=== PATIENT | male | born 1975 | race Caucasian/White ===

== ENCOUNTER 2020-03-10 13:25 | Emergency (ER) | payer MEDICAID ==
[~2020-03-10] VITALS: Ht 175.3 cm; Wt 63.5 kg
[2020-03-10 16:33] VITALS: BP 116/74
== END 2020-03-10 16:50 | disposition home or self-care (01) ==
LOC: ER 13:25
DX: K08.89 Other specified disorders of teeth and supporting structures (principal); H61.21 Impacted cerumen, right ear

== ENCOUNTER 2020-12-20 14:55 | Inpatient (IN) | payer MEDICAID ==
[~2020-12-20] VITALS: Ht 175.3 cm; Wt 28.5 kg
[2020-12-20 16:29] LABS: Urine Bacteria NONE SEEN /hpf (None Seen); Urine Blood 2+ /uL (Negative); Urine Hyaline Cast FEW /lpf (0 - 2); Urine Mucus FEW (None Seen); Urine Specific Gravity 1.026 (1.001-1.035); Urine WBC 10 /hpf (0 - 3)
[2020-12-20 16:58] LABS: Basophils # (auto) 0 10 ^3/uL (0-0.2); Basophils % (auto) 0.6 % (0.0-2.0); Eosinophils # (auto) 0.2 10 ^3/uL (0-0.8); Eosinophils % (auto) 2.2 % (0.0-7.0); Hematocrit 39.6 % (41.0-53.0); Hemoglobin 13.6 g/dL (13.5-17.5); Lymphocytes # (auto) 1.5 10 ^3/uL (0.4-5.4); Lymphocytes % (auto) 19.7 % (10.0-50.0); Mean Corpuscular Hemoglobin 29.5 pg (28.0-32.0); Mean Corpuscular Hgb Conc. 34.4 g/dL (32.0-36.0); Mean Corpuscular Volume 85.7 fL (80.0-100.0); Monocytes # (auto) 0.9 10 ^3/uL (0-1.3); Monocytes % (auto) 11.9 % (0.0-12.0); Neutrophils # (auto) 4.8 10 ^3/uL (1.6-8.6); Neutrophils % (auto) 65.6 % (37.0-80.0); Red Blood Cells 4.63 10^6/uL (4.5-5.90); Red Cell Distribution Width 12.9 % (11.8-14.3); White Blood Cell 7.4 10^3/uL (4.4-10.8)
[2020-12-20 17:29] LABS: Albumin 3.5 g/dL (3.4-5.0); Calcium 9.1 mg/dL (8.5-10.1); Potassium 4.3 mmol/L (3.5-5.1)
[2020-12-20 17:32] LABS: Bilirubin, Total 0.4 mg/dL (0.2-1.0); Total Protein 7.7 g/dL (6.4-8.2)
[2020-12-20] MEDS ORDERED: cefTRIAXone 1GM/50ML D5W 50 ML IV ONE (17:45)
[2020-12-20] MEDS ORDERED: SODIUM CHLORIDE 0.9% 1,000 ML IV ONE (17:45)
[2020-12-20] MEDS ORDERED: KETOROLAC TROMETH 30 MG/ML 1ML VIAL IV ONE (22:15)
[2020-12-20] MEDS ORDERED: ONDANSETRON HCL 4 MG/2 ML VIAL IV PRN (23:30)
[2020-12-20] MEDS ORDERED: MORPHINE SULFATE INJECTION 2 MG/ML SYRG IV PRN (23:30)
[2020-12-20] MEDS ORDERED: ACETAMINOPHEN 325 MG TAB PO PRN (23:30)
[2020-12-20] MEDS ORDERED: NITROGLYCERIN 0.4 MG SL TAB SL PRN (23:30)
[2020-12-20 23:55] VITALS: BP 130/91
[2020-12-21] MEDS: HYDROcodone-ACET 5/325MG TAB PO PRN ×2 (00:56→14:56)
[2020-12-21 05:00] VITALS: BP 113/68
[2020-12-21] MEDS ORDERED: ATEN-60 PO ×2 (07:31)
[2020-12-21 09:00] VITALS: BP 131/77
[2020-12-21] MEDS ORDERED: cefTRIAXone 1GM/50ML D5W 50 ML IV SCH (09:00)
[2020-12-21] MEDS ORDERED: MANNITOL FTV 25% 12.5 GM/50 ML 50 ML IV ONE (09:45)
[2020-12-21] MEDS ORDERED: ASCORBIC ACID 500 MG TAB PO SCH (10:00)
[2020-12-21] MEDS ORDERED: MULTIPLE VITAMIN TAB PO SCH (10:00)
[2020-12-21] MEDS ORDERED: HEPARIN SODIUM (PORCINE) 5000 UNITS/ML 1ML VIAL SC SCH (10:00)
[2020-12-21] MEDS ORDERED: ZINC SULFATE 220mg CAP or TAB PO SCH (10:00)
[2020-12-21] MEDS ORDERED: TAMSULOSIN HYDROCHLORIDE 0.4 MG CAP PO SCH ×2 (10:30→18:00)
[2020-12-21] MEDS ORDERED: SODIUM CHLORIDE 0.9% 1,000 ML IV ONE (10:30)
[2020-12-21] MEDS: SODIUM CHLORIDE 0.9% 1,000 ML IV SCH ×2 (10:34→20:00)
[2020-12-21 10:47] LABS: Basophils # (auto) 0 10 ^3/uL (0-0.2); Basophils % (auto) 0.5 % (0.0-2.0); Eosinophils # (auto) 0.1 10 ^3/uL (0-0.8); Eosinophils % (auto) 1.4 % (0.0-7.0); Hematocrit 39.9 % (41.0-53.0); Hemoglobin 13.6 g/dL (13.5-17.5); Lymphocytes # (auto) 1.2 10 ^3/uL (0.4-5.4); Lymphocytes % (auto) 17.8 % (10.0-50.0); Mean Corpuscular Hemoglobin 29.6 pg (28.0-32.0); Mean Corpuscular Volume 87.2 fL (80.0-100.0); Monocytes # (auto) 0.5 10 ^3/uL (0-1.3); Monocytes % (auto) 7.3 % (0.0-12.0); Neutrophils # (auto) 4.8 10 ^3/uL (1.6-8.6); Red Blood Cells 4.58 10^6/uL (4.5-5.90); Red Cell Distribution Width 12.7 % (11.8-14.3); White Blood Cell 6.6 10^3/uL (4.4-10.8)
[2020-12-21 11:07] LABS: Albumin 3.3 g/dL (3.4-5.0); Calcium 9.2 mg/dL (8.5-10.1); Potassium 3.9 mmol/L (3.5-5.1)
[2020-12-21 11:10] LABS: Bilirubin, Total 0.3 mg/dL (0.2-1.0); Total Protein 7.3 g/dL (6.4-8.2)
[2020-12-21 13:00] VITALS: BP 121/82
[2020-12-21 17:00] VITALS: BP 115/63
[2020-12-21] MEDS ORDERED: DOCUSATE SOD 100 MG CAP PO SCH (17:15)
[2020-12-21] MEDS ORDERED: POLYETHYLENE GLYCOL 17 GM PWDR PO ONE (17:15)
[2020-12-21] MEDS ORDERED: LACTULOSE 20Gm/30ML SOLN PO PRN (17:15)
[2020-12-21] MEDS ORDERED: DOCU100C10 PO (17:43)
[2020-12-21] MEDS ORDERED: CEPH-322 PO (17:43)
[2020-12-21] MEDS ORDERED: TAMS0.4C36 PO (17:43)
[2020-12-21] MEDS ORDERED: HYDR-4902 PO (17:43)
[2020-12-21 17:47] VITALS: BP 115/63
== END 2020-12-21 20:00 | disposition home or self-care (01) | DRG 463 ==
LOC: ER 14:55 → OVERFLOW 23:19 → WEST WING 23:55
PROVIDERS: ADMIT Nurse Practitioner Family; ATTEND Nurse Practitioner Family
DX: N13.6 Pyonephrosis (principal); I10 Essential (primary) hypertension; K59.00 Constipation, unspecified; N20.2 Calculus of kidney with calculus of ureter; Z82.49 Family history of ischemic heart disease and other diseases of the circulatory system; Z20.822 Contact with and (suspected) exposure to COVID-19
CPT/HCPCS: 36415; 74018; 74176; 80053; 81001; 83735; 85025; 87086; 87426; 96365; 96366; 96375; G0378; J0696; J1885

== ENCOUNTER 2021-01-01 12:52 | Emergency (ER) | payer MEDICAID ==
[~2021-01-01] VITALS: Ht 175.3 cm; Wt 63.5 kg
[~2021-01-01 12:52] MED LIST: ATEN-60 PO; CEPH-322 PO; DOCU100C10 PO; HYDR-4902 PO; TAMS0.4C36 PO
[2021-01-01 14:29] VITALS: BP 139/92
[2021-01-01 15:56] LABS: Urine Bacteria FEW /hpf (None Seen); Urine Blood Negative /uL (Negative); Urine Mucus FEW (None Seen); Urine Specific Gravity 1.007 (1.001-1.035); Urine WBC 4 /hpf (0 - 3)
== END 2021-01-01 14:34 | disposition home or self-care (01) ==
LOC: ER 12:52
DX: N23 Unspecified renal colic (principal)
CPT/HCPCS: 81001

== ENCOUNTER 2021-01-26 16:39 | Emergency (ER) | payer MEDICAID ==
[~2021-01-26] VITALS: Ht 175.3 cm; Wt 63.5 kg
[2021-01-26 19:06] LABS: Urine Bacteria FEW /hpf (None Seen); Urine Blood Negative /uL (Negative); Urine Specific Gravity 1.005 (1.001-1.035); Urine WBC 2 /hpf (0 - 3)
[2021-01-26 19:24] VITALS: BP 127/74
== END 2021-01-26 19:27 | disposition home or self-care (01) ==
LOC: ER 16:39
DX: R30.0 Dysuria (principal); Z79.899 Other long term (current) drug therapy; Z87.442 Personal history of urinary calculi
CPT/HCPCS: 81001

== ENCOUNTER 2021-02-15 17:21 | Inpatient (IN) | payer MEDICAID ==
[~2021-02-15] VITALS: Ht 175.3 cm; Wt 63.5 kg
[2021-02-15] MEDS ORDERED: SODIUM CHLORIDE 0.9% 1,000 ML IV ONE (18:30)
[2021-02-15 18:34] LABS: Basophils # (auto) 0.1 10 ^3/uL (0-0.2); Basophils % (auto) 0.9 % (0.0-2.0); Eosinophils # (auto) 0.2 10 ^3/uL (0-0.8); Eosinophils % (auto) 2.5 % (0.0-7.0); Hematocrit 43.3 % (41.0-53.0); Hemoglobin 14.9 g/dL (13.5-17.5); Lymphocytes # (auto) 1.7 10 ^3/uL (0.4-5.4); Lymphocytes % (auto) 17.3 % (10.0-50.0); Mean Corpuscular Hemoglobin 29.3 pg (28.0-32.0); Mean Corpuscular Hgb Conc. 34.3 g/dL (32.0-36.0); Mean Corpuscular Volume 85.4 fL (80.0-100.0); Monocytes % (auto) 9.8 % (0.0-12.0); Neutrophils % (auto) 69.5 % (37.0-80.0); Nucleated Red Blood Cells % 0.1 %; Red Blood Cells 5.07 10^6/uL (4.5-5.90); Red Cell Distribution Width 12.8 % (11.8-14.3); White Blood Cell 10.1 10^3/uL (4.4-10.8)
[2021-02-15 18:41] LABS: INR 1.09 (0.9-1.15); Partial Thromboplastin Time 30.2 sec (23.6-33.0)
[2021-02-15 18:47] LABS: Albumin 3.8 g/dL (3.4-5.0); Anion Gap 5 (5-15); Blood Urea Nitrogen 24 mg/dL (7-18); Calcium 10.1 mg/dL (8.5-10.1); Carbon Dioxide 26 mmol/L (21-32); Chloride 110 mmol/L (98-107); Glucose 107 mg/dL (74-106); Magnesium 2.6 mg/dL (1.6-2.6); Potassium 4.6 mmol/L (3.5-5.1); Sodium 141 mmol/L (136-145)
[2021-02-15 18:53] LABS: Alanine Aminotransferase 27 U/L (16-61); Alkaline Phosphatase 97 U/L (45-117); Aspartate Aminotransferase 14 U/L (15-37); BUN/Creatinine Ratio 15.8; Bilirubin, Total 0.3 mg/dL (0.2-1.0); GFR African American 64 mL/min; GFR Non-African American 53 mL/min; Total Protein 7.6 g/dL (6.4-8.2)
[2021-02-15] MEDS ORDERED: dilTIAZem 25 MG/5 ML VIAL IV ONE (19:15)
[2021-02-15 20:55] LABS: Urine Bacteria NONE SEEN /hpf (None Seen); Urine Blood Negative /uL (Negative); Urine Specific Gravity 1.017 (1.001-1.035); Urine WBC 9 /hpf (0 - 3)
[2021-02-15] MEDS ORDERED: ASPirin 81 mg TAB PO ONE (21:15)
[2021-02-15] MEDS ORDERED: METOPROLOL TARTRATE 25 MG TAB PO ONE (21:15)
[2021-02-15] MEDS ORDERED: ACETAMINOPHEN 325 MG TAB PO PRN (21:15)
[2021-02-15] MEDS ORDERED: TEMAZEPAM 15 MG CAP PO PRN (21:15)
[2021-02-15] MEDS ORDERED: NITROGLYCERIN 0.4 MG SL TAB SL PRN (21:15)
[2021-02-15] MEDS ORDERED: ONDANSETRON HCL 4 MG/2 ML VIAL IV PRN (21:15)
[2021-02-15] MEDS ORDERED: MORPHINE SULFATE INJECTION 2 MG/ML SYRG IV PRN (21:15)
[2021-02-16 06:39] LABS: Basophils # (auto) 0.1 10 ^3/uL (0-0.2); Basophils % (auto) 0.8 % (0.0-2.0); Eosinophils # (auto) 0.2 10 ^3/uL (0-0.8); Eosinophils % (auto) 2.8 % (0.0-7.0); Hematocrit 40.7 % (41.0-53.0); Hemoglobin 14.1 g/dL (13.5-17.5); Lymphocytes # (auto) 1.9 10 ^3/uL (0.4-5.4); Lymphocytes % (auto) 22.8 % (10.0-50.0); Mean Corpuscular Hemoglobin 29.9 pg (28.0-32.0); Mean Corpuscular Hgb Conc. 34.7 g/dL (32.0-36.0); Mean Corpuscular Volume 86.2 fL (80.0-100.0); Monocytes # (auto) 0.8 10 ^3/uL (0-1.3); Monocytes % (auto) 9.4 % (0.0-12.0); Neutrophils # (auto) 5.3 10 ^3/uL (1.6-8.6); Neutrophils % (auto) 64.2 % (37.0-80.0); Nucleated Red Blood Cells % 0.1 %; Red Blood Cells 4.73 10^6/uL (4.5-5.90); Red Cell Distribution Width 12.8 % (11.8-14.3); White Blood Cell 8.2 10^3/uL (4.4-10.8)
[2021-02-16 06:57] LABS: Calcium 9.6 mg/dL (8.5-10.1); Chloride 112 mmol/L (98-107); Potassium 4.3 mmol/L (3.5-5.1); Sodium 140 mmol/L (136-145)
[2021-02-16 07:05] LABS: Anion Gap 3 (5-15); BUN/Creatinine Ratio 18.3; Blood Urea Nitrogen 22 mg/dL (7-18); Carbon Dioxide 25 mmol/L (21-32); GFR African American 85 mL/min; GFR Non-African American 70 mL/min; Glucose 91 mg/dL (74-106)
[2021-02-16] MEDS ORDERED: ATENOLOL 50 MG TAB PO SCH (10:00)
[2021-02-16] MEDS ORDERED: PANTOPRAZOLE 40 MG TAB PO SCH (10:00)
[2021-02-16] MEDS ORDERED: ASPirin 81 mg TAB PO SCH (10:00)
[2021-02-16 13:39] VITALS: BP 107/76
[2021-02-16] MEDS ORDERED: TAMSULOSIN HYDROCHLORIDE 0.4 MG CAP PO SCH (18:00)
== END 2021-02-16 14:00 | disposition home or self-care (01) | DRG 201 ==
LOC: EDBD 17:21 → ER 17:47 → TELE 21:15
PROVIDERS: ADMIT Nurse Practitioner; ATTEND Internal Medicine
DX: I48.91 Unspecified atrial fibrillation (principal); I10 Essential (primary) hypertension; Z82.49 Family history of ischemic heart disease and other diseases of the circulatory system; Z87.442 Personal history of urinary calculi; Z20.822 Contact with and (suspected) exposure to COVID-19
CPT/HCPCS: 36415; 71045; 80048; 80053; 81001; 83735; 83880; 84484; 85025; 85610; 85730; 87426; 93005; 93306; 96361; 96374; G0378

== ENCOUNTER 2021-04-04 09:47 | Emergency (ER) | payer MEDICAID ==
[~2021-04-04] VITALS: Ht 175.3 cm; Wt 63.5 kg
[2021-04-04 11:12] LABS: Urine Bacteria NONE SEEN /hpf (None Seen); Urine Blood 1+ /uL (Negative); Urine Mucus FEW (None Seen); Urine Specific Gravity 1.008 (1.001-1.035); Urine WBC 5 /hpf (0 - 3)
[2021-04-04] MEDS ORDERED: KETOROLAC TROMETH 30 MG/ML 1ML VIAL IV ONE ×2 (11:30→15:30)
[2021-04-04] MEDS ORDERED: SODIUM CHLORIDE 0.9% 1,000 ML IV ONE ×2 (11:30→13:30)
[2021-04-04 12:09] LABS: Basophils # (auto) 0 10 ^3/uL (0-0.2); Basophils % (auto) 0.5 % (0.0-2.0); Eosinophils # (auto) 0.1 10 ^3/uL (0-0.8); Eosinophils % (auto) 1.6 % (0.0-7.0); Hemoglobin 14.6 g/dL (13.5-17.5); Lymphocytes # (auto) 1.2 10 ^3/uL (0.4-5.4); Lymphocytes % (auto) 15.9 % (10.0-50.0); Mean Corpuscular Hemoglobin 29.2 pg (28.0-32.0); Mean Corpuscular Hgb Conc. 33.9 g/dL (32.0-36.0); Mean Corpuscular Volume 86.2 fL (80.0-100.0); Monocytes # (auto) 0.7 10 ^3/uL (0-1.3); Neutrophils # (auto) 5.6 10 ^3/uL (1.6-8.6); Red Blood Cells 4.99 10^6/uL (4.5-5.90); Red Cell Distribution Width 13.2 % (11.8-14.3); White Blood Cell 7.7 10^3/uL (4.4-10.8)
[2021-04-04 12:29] LABS: Albumin 3.8 g/dL (3.4-5.0); Calcium 9.8 mg/dL (8.5-10.1); Potassium 4.1 mmol/L (3.5-5.1)
[2021-04-04 12:33] LABS: BUN/Creatinine Ratio 9.4; Bilirubin, Total 0.5 mg/dL (0.2-1.0); Total Protein 8.2 g/dL (6.4-8.2)
[2021-04-04] MEDS ORDERED: TAMSULOSIN HYDROCHLORIDE 0.4 MG CAP PO ONE (13:30)
[2021-04-04 16:49] VITALS: BP 138/84
== END 2021-04-04 17:11 | disposition left against medical advice (07) ==
LOC: ER 09:47
DX: N13.30 Unspecified hydronephrosis (principal); N20.0 Calculus of kidney; I10 Essential (primary) hypertension; Z79.899 Other long term (current) drug therapy; Z79.2 Long term (current) use of antibiotics
CPT/HCPCS: 36415; 74176; 80053; 81001; 85025; 96361; 96374; 99284; J1885; J7030

== ENCOUNTER → 2021-07-09 | Day surgery (SDC) | payer MEDICAID ==
[~2021-07-09] VITALS: Ht 175.3 cm; Wt 63.5 kg
[~2021-07-09] MED LIST changes: -CEPH-322 PO; -DOCU100C10 PO; +DexAMETHasone SOD PHOS 10MG/1ML VIAL INJ ONE; +FLUC200T50 PO; -HYDR-4902 PO; +HYDROmorphone HCL 2 MG/ML VL IV PRN; +IOHEXOL 300 MG/ML 100ML BOTTLE IJ ONE; +LABETALOL HCL 5 MG/ML 4ML SYRINGE IV PRN; +MEPERIDINE HCL (25 MG/ML) 1ML VIAL ONE; +MIDAZOLAM HCL 2MG/2ML 2ml VIAL (1mg/ml) IV PRN; +MIDAZOLAM HCL 2MG/2ML 2ml VIAL (1mg/ml) ONE; +MORPHINE SULFATE INJECTION 2 MG/ML SYRG IV PRN; +ONDANSETRON HCL 4 MG/2 ML VIAL IV PRN; +PERCOT PO; +PROPOFOL 10 MG/ML 20 ML IV ONE; -TAMS0.4C36 PO; +ceFAZolin 1GM/50ML 100 ML IV ONE; +ePHEDrine SULFATE 50 MG/ML AMP IV PRN; +fentaNYL CITRATE 100 MCG/2 ML VL ONE
[2021-07-09 12:30] VITALS: BP 124/85
== END | disposition home or self-care (01) ==
LOC: SUR 07:59
PROVIDERS: ATTEND Urology
DX: N20.1 Calculus of ureter (principal); I10 Essential (primary) hypertension; Z20.822 Contact with and (suspected) exposure to COVID-19; Z82.49 Family history of ischemic heart disease and other diseases of the circulatory system
CPT/HCPCS: 52356; 74018; 76000; 88300; C2617; J0690; J1100; J1170; J2175; J2250; J2704; J3010; U0003

== ENCOUNTER 2021-08-15 07:50 | Inpatient (IN) | payer MEDICAID, OTHER ==
[~2021-08-15] VITALS: Ht 175.3 cm; Wt 63.5 kg
[~2021-08-15 07:50] MED LIST changes: -DexAMETHasone SOD PHOS 10MG/1ML VIAL INJ ONE; -HYDROmorphone HCL 2 MG/ML VL IV PRN; -IOHEXOL 300 MG/ML 100ML BOTTLE IJ ONE; -LABETALOL HCL 5 MG/ML 4ML SYRINGE IV PRN; -MEPERIDINE HCL (25 MG/ML) 1ML VIAL ONE; -MIDAZOLAM HCL 2MG/2ML 2ml VIAL (1mg/ml) IV PRN; -MIDAZOLAM HCL 2MG/2ML 2ml VIAL (1mg/ml) ONE; -MORPHINE SULFATE INJECTION 2 MG/ML SYRG IV PRN; -ONDANSETRON HCL 4 MG/2 ML VIAL IV PRN; -PROPOFOL 10 MG/ML 20 ML IV ONE; -ceFAZolin 1GM/50ML 100 ML IV ONE; -ePHEDrine SULFATE 50 MG/ML AMP IV PRN; -fentaNYL CITRATE 100 MCG/2 ML VL ONE
[2021-08-15] MEDS ORDERED: SODIUM CHLORIDE 0.9% 1,000 ML IV ONE (08:30)
[2021-08-15] MEDS ORDERED: SODIUM CHLORIDE 0.9% 1,000 ML IVB ONE (08:30)
[2021-08-15] MEDS ORDERED: dilTIAZem 25 MG/5 ML VIAL IV ONE (08:30)
[2021-08-15] MEDS ORDERED: ASPirin 81 mg TAB PO ONE (08:30)
[2021-08-15 08:52] LABS: Urine Bacteria NONE SEEN /hpf (None Seen); Urine Blood Negative /uL (Negative); Urine Specific Gravity 1.013 (1.001-1.035)
[2021-08-15 09:12] LABS: Albumin 3.6 g/dL (3.4-5.0); Calcium 9.5 mg/dL (8.5-10.1); Potassium 3.8 mmol/L (3.5-5.1)
[2021-08-15 09:13] LABS: Basophils # (auto) 0 10 ^3/uL (0-0.2); Basophils % (auto) 0.7 % (0.0-2.0); Eosinophils # (auto) 0.1 10 ^3/uL (0-0.8); Eosinophils % (auto) 1.9 % (0.0-7.0); Hematocrit 39.1 % (41.0-53.0); Hemoglobin 13.1 g/dL (13.5-17.5); Lymphocytes # (auto) 1.2 10 ^3/uL (0.4-5.4); Lymphocytes % (auto) 18.5 % (10.0-50.0); Mean Corpuscular Hgb Conc. 33.6 g/dL (32.0-36.0); Mean Corpuscular Volume 86.4 fL (80.0-100.0); Monocytes # (auto) 0.6 10 ^3/uL (0-1.3); Monocytes % (auto) 8.8 % (0.0-12.0); Neutrophils # (auto) 4.7 10 ^3/uL (1.6-8.6); Neutrophils % (auto) 70.1 % (37.0-80.0); Red Blood Cells 4.52 10^6/uL (4.5-5.90); Red Cell Distribution Width 15.2 % (11.8-14.3); White Blood Cell 6.7 10^3/uL (4.4-10.8)
[2021-08-15 09:17] LABS: Bilirubin, Total 0.4 mg/dL (0.2-1.0); Total Protein 7.4 g/dL (6.4-8.2)
[2021-08-15 09:23] LABS: Urine WBC None Seen /hpf (0 - 3)
[2021-08-15 09:34] LABS: BUN/Creatinine Ratio 15.3
[2021-08-15 09:45] LABS: INR 1.1 (0.9-1.15); Partial Thromboplastin Time 32.1 sec (23.6-33.0)
[2021-08-15] MEDS ORDERED: IOHEXOL 350 MG/ML 100ML IJ ONE (11:55)
[2021-08-15] MEDS ORDERED: METOPROLOL TARTRATE 1MG/1ML-5ML VIAL IV ONE (12:45)
[2021-08-15] MEDS ORDERED: AMIODARONE HCL 150 MG in D5W 5% 100 ML IV ONE (14:15)
[2021-08-15] MEDS ORDERED: AMIODARONE HCL (50 MG/ ML) 3 ML VIAL IV ONE ×2 (14:17→14:18)
[2021-08-15] MEDS ORDERED: AMIODARONE 450mg/250ml AE 250 ML IV ONE (14:25)
[2021-08-15] MEDS ORDERED: AMIODARONE 450mg/250ml AE 250 ML IV SCH (14:30)
[2021-08-15] MEDS ORDERED: ENOXAPARIN SOD 60 MG/0.6 ML SYRINGE SC ONE (15:00)
[2021-08-15] MEDS ORDERED: ACETAMINOPHEN 325 MG TAB PO PRN (17:15)
[2021-08-15] MEDS ORDERED: HYDROcodone-ACET 5/325MG TAB PO PRN (17:15)
[2021-08-15] MEDS ORDERED: NITROGLYCERIN 0.4 MG SL TAB SL PRN (17:15)
[2021-08-15] MEDS ORDERED: MORPHINE SULFATE INJECTION 2 MG/ML SYRG IV PRN (17:15)
[2021-08-15] MEDS ORDERED: DOCUSATE SOD 100 MG CAP PO PRN (17:15)
[2021-08-15] MEDS: AMIODARONE 450mg/250ml AE 250 ML IV SCH (20:49)
[2021-08-15 20:51] VITALS: BP 117/78
[2021-08-15] MEDS: ENOXAPARIN SOD 60 MG/0.6 ML SYRINGE SC SCH (21:36)
[2021-08-16] VITALS (14 sets, daily range): BP systolic 89–117; BP diastolic 61–77
[2021-08-16] MEDS: AMIODARONE 450mg/250ml AE 250 ML IV SCH (11:30)
[2021-08-16 11:45] LABS: Basophils # (auto) 0.1 10 ^3/uL (0-0.2); Basophils % (auto) 1.2 % (0.0-2.0); Eosinophils # (auto) 0 10 ^3/uL (0-0.8); Eosinophils % (auto) 0.4 % (0.0-7.0); Hematocrit 39.4 % (41.0-53.0); Hemoglobin 13.3 g/dL (13.5-17.5); Lymphocytes # (auto) 0.7 10 ^3/uL (0.4-5.4); Lymphocytes % (auto) 11.6 % (10.0-50.0); Mean Corpuscular Hemoglobin 29.1 pg (28.0-32.0); Mean Corpuscular Hgb Conc. 33.7 g/dL (32.0-36.0); Mean Corpuscular Volume 86.3 fL (80.0-100.0); Monocytes # (auto) 0.3 10 ^3/uL (0-1.3); Monocytes % (auto) 5.2 % (0.0-12.0); Neutrophils # (auto) 5.1 10 ^3/uL (1.6-8.6); Neutrophils % (auto) 81.6 % (37.0-80.0); Nucleated Red Blood Cells % 0.1 %; Red Blood Cells 4.56 10^6/uL (4.5-5.90); Red Cell Distribution Width 15.3 % (11.8-14.3); White Blood Cell 6.2 10^3/uL (4.4-10.8)
[2021-08-16 12:07] LABS: BUN/Creatinine Ratio 13.7; Calcium 10.1 mg/dL (8.5-10.1); Potassium 4.2 mmol/L (3.5-5.1)
[2021-08-16] MEDS: APIXABAN 5 MG TAB PO SCH ×2 (19:41→19:42)
[2021-08-16] MEDS: DRONEDARONE HCL 400 MG TAB PO SCH (19:42)
[2021-08-16] MEDS ORDERED: APIXABAN 5 MG TAB PO SCH (22:00)
[2021-08-16] MEDS ORDERED: DRONEDARONE HCL 400 MG TAB PO SCH (22:00)
== END 2021-08-16 20:56 | disposition left against medical advice (07) | DRG 201 ==
LOC: ER 07:50 → TELE 17:02 → EDUNIT# 17:02 → DOU IN ICU 20:14 → UNDODISIN 08-16 20:59
PROVIDERS: ADMIT Internal Medicine; ATTEND Internal Medicine
DX: I48.91 Unspecified atrial fibrillation (principal); N17.9 Acute kidney failure, unspecified; I10 Essential (primary) hypertension; Z20.822 Contact with and (suspected) exposure to COVID-19; Z53.29 Procedure and treatment not carried out because of patient's decision for other reasons; Z79.899 Other long term (current) drug therapy; Z82.49 Family history of ischemic heart disease and other diseases of the circulatory system; Z87.442 Personal history of urinary calculi
CPT/HCPCS: 36415; 71046; 71275; 80048; 80053; 80320; 81001; 83735; 84443; 84484; 85025; 85379; 85610; 85730; 87081; 93005; 93970; 96361; 96365; 96375; G0378; J7060

== ENCOUNTER 2021-12-25 10:43 | Emergency (ER) | payer MEDICAID ==
[~2021-12-25] VITALS: Ht 175.3 cm; Wt 65.4 kg
[2021-12-25 11:46] VITALS: BP 131/92
== END 2021-12-25 12:03 | disposition home or self-care (01) ==
LOC: ER 10:43
DX: M67.431 Ganglion, right wrist (principal); M71.331 Other bursal cyst, right wrist; I10 Essential (primary) hypertension; Z79.899 Other long term (current) drug therapy

== ENCOUNTER 2022-02-19 09:15 | Inpatient (IN) | payer MEDICAID ==
[~2022-02-19] VITALS: Ht 172.7 cm; Wt 68.4 kg
[2022-02-19 10:14] LABS: Basophils # (auto) 0.1 10 ^3/uL (0-0.2); Basophils % (auto) 0.5 % (0.0-2.0); Eosinophils # (auto) 0.2 10 ^3/uL (0-0.8); Eosinophils % (auto) 1.4 % (0.0-7.0); Hematocrit 40.9 % (41.0-53.0); Hemoglobin 13.5 g/dL (13.5-17.5); Lymphocytes # (auto) 1.1 10 ^3/uL (0.4-5.4); Lymphocytes % (auto) 9.9 % (10.0-50.0); Mean Corpuscular Hemoglobin 28.1 pg (28.0-32.0); Mean Corpuscular Volume 85.4 fL (80.0-100.0); Monocytes # (auto) 0.9 10 ^3/uL (0-1.3); Monocytes % (auto) 7.8 % (0.0-12.0); Neutrophils # (auto) 9.2 10 ^3/uL (1.6-8.6); Neutrophils % (auto) 80.4 % (37.0-80.0); Red Blood Cells 4.79 10^6/uL (4.5-5.90); White Blood Cell 11.5 10^3/uL (4.4-10.8)
[2022-02-19] MEDS ORDERED: dilTIAZem 25 MG/5 ML VIAL IV ONE (10:15)
[2022-02-19 10:21] LABS: Albumin 3.6 g/dL (3.4-5.0); Calcium 9.9 mg/dL (8.5-10.1); Magnesium 2.4 mg/dL (1.6-2.6); Potassium 4.4 mmol/L (3.5-5.1)
[2022-02-19 10:25] LABS: Bilirubin, Total 0.4 mg/dL (0.2-1.0)
[2022-02-19 10:49] LABS: Urine Bacteria NONE SEEN /hpf (None Seen); Urine Blood Negative /uL (Negative); Urine Mucus FEW (None Seen); Urine Specific Gravity 1.014 (1.001-1.035); Urine WBC 2 /hpf (0 - 3)
[2022-02-19] MEDS ORDERED: HYDROcodone-ACET 5/325MG TAB PO ONE (12:00)
[2022-02-19] MEDS ORDERED: AMIODARONE 450mg/250ml AE 250 ML IV SCH ×2 (13:15→19:15)
[2022-02-19] MEDS ORDERED: AMIODARONE HCL 150 MG in D5W 5% 100 ML IV ONE (13:15)
[2022-02-19] MEDS ORDERED: ACETAMINOPHEN 325 MG TAB PO PRN (13:15)
[2022-02-19] MEDS ORDERED: HYDROcodone-ACET 5/325MG TAB PO PRN (13:15)
[2022-02-19] MEDS ORDERED: ONDANSETRON HCL 4 MG/2 ML VIAL IV PRN (13:15)
[2022-02-19] MEDS ORDERED: NITROGLYCERIN 0.4 MG SL TAB SL PRN (13:15)
[2022-02-19] MEDS ORDERED: MORPHINE SULFATE INJ 2 MG/ml SYRG IV PRN (13:15)
[2022-02-19] MEDS ORDERED: DOCUSATE SOD 100 MG CAP PO PRN (13:15)
[2022-02-19] MEDS ORDERED: ATEN25TA PO (13:19)
[2022-02-19] MEDS: SODIUM CHLORIDE 0.9% 1,000 ML IV SCH ×2 (13:56→23:32)
[2022-02-19] MEDS ORDERED: PANTOPRAZOLE 40 MG/10 ML VIAL INJ IV ONE (14:15)
[2022-02-19 22:00] VITALS: BP 106/72
[2022-02-19 22:55] LABS: Amphetamine Screen, Urine NEGATIVE (NEGATIVE); Barbiturate Scree,Urine NEGATIVE (NEGATIVE); Benzodiazephine Screen, Urine NEGATIVE (NEGATIVE); Cannabinoid Screen, Urine NEGATIVE (NEGATIVE); Cocaine Screen, Urine NEGATIVE (NEGATIVE); Opiate Scree,Urine POSITIVE (NEGATIVE); Phencyclidine Screen, Urine NEGATIVE (NEGATIVE)
[2022-02-20 05:00] VITALS: BP 104/68
[2022-02-20] MEDS ORDERED: DRON400T PO (08:48)
[2022-02-20 09:00] VITALS: BP 110/72
[2022-02-20] MEDS ORDERED: AMIODARONE HCL 200 MG TAB PO SCH (09:00)
[2022-02-20] MEDS: SODIUM CHLORIDE 0.9% 1,000 ML IV SCH (09:00)
[2022-02-20] MEDS ORDERED: PANTOPRAZOLE 40 MG/10 ML VIAL INJ IV SCH (10:00)
[2022-02-20] MEDS: ENOXAPARIN SOD 40 MG/0.4 ML SYRINGE SC SCH ×2 (10:00→10:24)
[2022-02-20] MEDS ORDERED: ATENOLOL 25 MG TAB PO SCH (10:00)
[2022-02-20 11:37] VITALS: BP 110/72
== END 2022-02-20 12:15 | disposition home or self-care (01) | DRG 201 ==
LOC: ER 09:15 → TELE 13:17 → TELE-CENTR 18:36
PROVIDERS: ADMIT Nurse Practitioner Family; ATTEND Nurse Practitioner Family
DX: I48.0 Paroxysmal atrial fibrillation (principal); D72.829 Elevated white blood cell count, unspecified; I10 Essential (primary) hypertension; Z79.899 Other long term (current) drug therapy; Z82.49 Family history of ischemic heart disease and other diseases of the circulatory system; Z87.442 Personal history of urinary calculi; Z20.822 Contact with and (suspected) exposure to COVID-19
CPT/HCPCS: 36415; 71045; 80053; 80307; 81001; 83735; 83880; 84443; 84484; 85025; 93005; 93306; 96365; 96366; 96375; C9113; G0378; J7060

== ENCOUNTER 2022-08-26 14:48 | Emergency (ER) | payer MEDICAID ==
[~2022-08-26] VITALS: Ht 162.6 cm; Wt 64.4 kg
[~2022-08-26 14:48] MED LIST changes: +ATEN25TA PO; +DRON400T PO; -FLUC200T50 PO
[2022-08-26 14:57] VITALS: BP 123/70
[2022-08-26 15:36] LABS: Urine Bacteria NONE SEEN /hpf (None Seen); Urine Blood Negative /uL (Negative); Urine Specific Gravity 1.005 (1.001-1.035); Urine WBC 1 /hpf (0 - 3)
[2022-08-26 16:10] LABS: Basophils # (auto) 0.1 10 ^3/uL (0-0.2); Basophils % (auto) 0.7 % (0.0-2.0); Eosinophils # (auto) 0.2 10 ^3/uL (0-0.8); Eosinophils % (auto) 1.8 % (0.0-7.0); Hemoglobin 13.5 g/dL (13.5-17.5); Lymphocytes # (auto) 1.3 10 ^3/uL (0.4-5.4); Lymphocytes % (auto) 14.6 % (10.0-50.0); Mean Corpuscular Hemoglobin 28.2 pg (28.0-32.0); Mean Corpuscular Hgb Conc. 33.1 g/dL (32.0-36.0); Mean Corpuscular Volume 85.2 fL (80.0-100.0); Monocytes # (auto) 0.9 10 ^3/uL (0-1.3); Monocytes % (auto) 9.5 % (0.0-12.0); Neutrophils # (auto) 6.6 10 ^3/uL (1.6-8.6); Neutrophils % (auto) 73.4 % (37.0-80.0); Nucleated Red Blood Cells % 0.3 %; Red Blood Cells 4.81 10^6/uL (4.5-5.90); Red Cell Distribution Width 13.6 % (11.8-14.3)
[2022-08-26 16:27] LABS: Albumin 3.6 g/dL (3.4-5.0); Calcium 9.9 mg/dL (8.5-10.1); Potassium 4.1 mmol/L (3.5-5.1)
[2022-08-26 16:36] LABS: BUN/Creatinine Ratio 10.7 (10.0-20.0); Bilirubin, Total 0.4 mg/dL (0.2-1.0); Total Protein 7.8 g/dL (6.4-8.2)
[2022-08-26] MEDS ORDERED: IBUP800T26 PO (17:20)
== END 2022-08-26 18:14 | disposition home or self-care (01) ==
LOC: ER 14:48
DX: N20.0 Calculus of kidney (principal); I10 Essential (primary) hypertension; Z79.899 Other long term (current) drug therapy
CPT/HCPCS: 36415; 74176; 80053; 81001; 85025

== ENCOUNTER 2022-09-28 23:58 | Inpatient (IN) | payer MEDICAID, OTHER ==
[~2022-09-28] VITALS: Ht 175.3 cm; Wt 66.1 kg
[~2022-09-28 23:58] MED LIST changes: +IBUP800T26 PO
[2022-09-29] MEDS ORDERED: dilTIAZem 25 MG/5 ML VIAL IV ONE (00:30)
[2022-09-29] MEDS ORDERED: SODIUM CHLORIDE 0.9% 500 ML IV ONE ×3 (00:30→19:15)
[2022-09-29 00:32] LABS: Basophils # (auto) 0 10 ^3/uL (0-0.2); Basophils % (auto) 0.6 % (0.0-2.0); Eosinophils # (auto) 0.1 10 ^3/uL (0-0.8); Eosinophils % (auto) 1.4 % (0.0-7.0); Hematocrit 39.2 % (41.0-53.0); Hemoglobin 13.4 g/dL (13.5-17.5); Lymphocytes # (auto) 1.8 10 ^3/uL (0.4-5.4); Lymphocytes % (auto) 23.5 % (10.0-50.0); Mean Corpuscular Hemoglobin 29.1 pg (28.0-32.0); Mean Corpuscular Hgb Conc. 34.1 g/dL (32.0-36.0); Mean Corpuscular Volume 85.3 fL (80.0-100.0); Monocytes % (auto) 13.4 % (0.0-12.0); Neutrophils # (auto) 4.8 10 ^3/uL (1.6-8.6); Neutrophils % (auto) 61.1 % (37.0-80.0); Nucleated Red Blood Cells % 0.1 %; Red Cell Distribution Width 13.6 % (11.8-14.3); White Blood Cell 7.8 10^3/uL (4.4-10.8)
[2022-09-29 00:39] LABS: INR 1.07 (0.9-1.15); Partial Thromboplastin Time 32.1 sec (24.6-33.4)
[2022-09-29 00:43] LABS: Albumin 3.3 g/dL (3.4-5.0); Magnesium 2.3 mg/dL (1.6-2.6); Potassium 4.1 mmol/L (3.5-5.1)
[2022-09-29 00:45] LABS: BUN/Creatinine Ratio 14.8 (10.0-20.0)
[2022-09-29 00:48] LABS: Bilirubin, Total 0.3 mg/dL (0.2-1.0); Total Protein 7.4 g/dL (6.4-8.2)
[2022-09-29] MEDS ORDERED: dilTIAZem 125mg/125ml BAG KIT 125 ML IV ONE (01:15)
[2022-09-29 01:53] LABS: Urine Bacteria NONE SEEN /hpf (None Seen); Urine Blood Negative /uL (Negative); Urine Specific Gravity 1.003 (1.001-1.035); Urine Sperm PRESENT /hpf (None Seen); Urine WBC <1 /hpf (0 - 3)
[2022-09-29] MEDS ORDERED: HYDROcodone-ACET 5/325MG TAB PO ONE (02:00)
[2022-09-29] MEDS ORDERED: TEMAZEPAM 15 MG CAP PO PRN (04:45)
[2022-09-29] MEDS ORDERED: ACETAMINOPHEN 325 MG TAB PO PRN (04:45)
[2022-09-29] MEDS ORDERED: NITROGLYCERIN 0.4 MG SL TAB SL PRN (04:45)
[2022-09-29] MEDS ORDERED: ONDANSETRON HCL 4 MG/2 ML VIAL IV PRN (04:45)
[2022-09-29] MEDS ORDERED: MORPHINE SULFATE INJ 2 MG/ml SYRG IV PRN (04:45)
[2022-09-29] MEDS ORDERED: METOPROLOL TARTRATE 1MG/1ML-5ML VIAL IV PRN (08:15)
[2022-09-29] MEDS: METOPROLOL TARTRATE 25 MG TAB PO SCH ×4 (08:46→22:54)
[2022-09-29] MEDS ORDERED: ATENOLOL 50 MG TAB PO SCH (10:00)
[2022-09-29] MEDS ORDERED: ENOXAPARIN SOD 40 MG/0.4 ML SYRINGE SC SCH (10:00)
[2022-09-29] MEDS: MULTAQ 400 MG PO SCH (10:00)
[2022-09-29] MEDS ORDERED: ENOXAPARIN SOD 80 MG/0.8ML SYRINGE SC ONE (11:45)
[2022-09-29] MEDS: PANTOPRAZOLE 40 MG TAB PO SCH (11:56)
[2022-09-29] MEDS ORDERED: AMIODARONE 450mg/250ml AE 250 ML IV SCH ×2 (12:00→18:00)
[2022-09-29] MEDS ORDERED: METOPROLOL TARTRATE 25 MG TAB PO ONE (13:15)
[2022-09-29] MEDS: AMIODARONE 450mg/250ml AE 250 ML IV SCH (17:20)
[2022-09-29 19:52] LABS: Alcohol, Urine < 3.0 mg/dL (0-10); Amphetamine Screen, Urine NEGATIVE (NEGATIVE); Barbiturate Scree,Urine NEGATIVE (NEGATIVE); Benzodiazephine Screen, Urine NEGATIVE (NEGATIVE); Cannabinoid Screen, Urine NEGATIVE (NEGATIVE); Cocaine Screen, Urine NEGATIVE (NEGATIVE); Opiate Scree,Urine NEGATIVE (NEGATIVE); Phencyclidine Screen, Urine NEGATIVE (NEGATIVE)
[2022-09-29] MEDS ORDERED: ENOXAPARIN SOD 80 MG/0.8ML SYRINGE SC SCH (22:00)
[2022-09-29 22:39] VITALS: BP 119/87
[2022-09-30] MEDS: AMIODARONE 450mg/250ml AE 250 ML IV SCH (00:30)
[2022-09-30 05:00] VITALS: BP 103/64
[2022-09-30] MEDS ORDERED: ASPirin-EC 81 mg tab PO ONE (07:45)
[2022-09-30 08:00] VITALS: BP 113/62
[2022-09-30] MEDS ORDERED: DRONEDARONE HCL 400 MG TAB PO SCH (08:00)
[2022-09-30] MEDS: MULTAQ 400 MG PO SCH (08:15)
[2022-09-30 08:43] VITALS: BP 113/62
[2022-09-30] MEDS: PANTOPRAZOLE 40 MG TAB PO SCH (08:50)
[2022-09-30] MEDS: METOPROLOL TARTRATE 25 MG TAB PO SCH (08:51)
[2022-09-30] MEDS ORDERED: ASPI-498 PO (10:19)
[2022-09-30] MEDS ORDERED: MET25T PO (10:19)
[2022-09-30] MEDS ORDERED: DRON400T PO (10:19)
[2022-09-30 10:47] VITALS: BP 113/62
== END 2022-09-30 11:15 | disposition home or self-care (01) | DRG 201 ==
LOC: ER 23:58 → TELE 09-29 04:45 → TELE-WESTW 09-29 21:35
PROVIDERS: ADMIT Nurse Practitioner; ATTEND Internal Medicine
DX: I48.0 Paroxysmal atrial fibrillation (principal); I11.0 Hypertensive heart disease with heart failure; I50.22 Chronic systolic (congestive) heart failure; Z79.01 Long term (current) use of anticoagulants; Z79.82 Long term (current) use of aspirin; Z79.899 Other long term (current) drug therapy; Z82.49 Family history of ischemic heart disease and other diseases of the circulatory system; Z87.442 Personal history of urinary calculi; Z91.148 Patient's other noncompliance with medication regimen for other reason
CPT/HCPCS: 36415; 71045; 80053; 80307; 81001; 83735; 83880; 84443; 84484; 85025; 85610; 85730; 93005; 93306; 96361; 96365; 96366; 96376; 99291; G0378

== ENCOUNTER 2023-04-29 08:39 | Emergency (ER) | payer MEDICAID ==
[~2023-04-29] VITALS: Ht 167.6 cm; Wt 65.9 kg
[~2023-04-29 08:39] MED LIST changes: +ASPI-498 PO; -ATEN-60 PO; -ATEN25TA PO; -IBUP800T26 PO; +MET25T PO; -PERCOT PO
[2023-04-29 09:06] VITALS: BP 122/84; PULSE 71; RESP 18; TEMP 97.1; O2SAT 100
[2023-04-29] MEDS ORDERED: IBUPROFEN 600 MG TAB PO ONE (10:00)
[2023-04-29] MEDS ORDERED: ACETAMINOPHEN 500 MG TAB PO ONE (10:00)
[2023-04-29] MEDS ORDERED: ACE650RS PR (10:09)
[2023-04-29] MEDS ORDERED: CEPH500C PO (10:09)
== END 2023-04-29 10:10 | disposition home or self-care (01) ==
LOC: ER 08:39
DX: S00.33XA Contusion of nose, initial encounter (principal); I10 Essential (primary) hypertension; Z87.442 Personal history of urinary calculi; W18.09XA Striking against other object with subsequent fall, initial encounter; Y93.K1 Activity, walking an animal; Y92.89 Other specified places as the place of occurrence of the external cause; Y99.8 Other external cause status
CPT/HCPCS: 70160

== ENCOUNTER 2024-10-01 15:29 | Inpatient (IN) | payer MEDICAID ==
[~2024-10-01] VITALS: Ht 175.3 cm; Wt 68.0 kg
[~2024-10-01 15:29] MED LIST changes: +ACE650RS PR; +CEPH500C PO
--- NOTE | 2024-10-01 15:40 | ED.PDOC ---
HPI Comments 49 year old male presents to the ED with a chief compliant of palpitations onset today (10/01/24) about 3 hours ago. PMHx A-fib, HTN. Patient missed medication for the past day. Patient was running after dog when he began experiencing palpitations. Patient has experienced 3 similar episodes in the past, has been seen in this ED. Denies shortness of breath, dizziness, headache, blurry vision, nausea, vomiting, diarrhea. No other symptoms or modifying factors present at this time. Time Seen by MD: 15:31 Primary Care Provider: UNKNOWN Reviewed Notes: Medications, Allergies Allergies: Coded Allergies: No Known Drug Allergy (Unverified Allergy, Unknown, 08/15/21) Home Meds Active Scripts Acetaminophen (Tylenol) 650 Mg Rc, 650 MG [place] TID, #30 TAB Prov:ALEXANDRA CLAUDIO 04/29/23 Cephalexin Monohydrate (Cephalexin) 500 Mg Cap, 1 CAP PO TID, #21 CAP Prov:ALEXANDRA CLAUDIO 04/29/23 Aspirin (ASPIRIN 81) 81 Mg Tab, 81 MG PO DAILY, #30 TAB Prov:CHIDI FLORIAN MD 09/30/22 Metoprolol Tartrate (Lopressor) 25 Mg Tb, 50 MG PO BID, #120 TAB Prov:CHIDI FLORIAN MD 09/30/22 Dronedarone Hydrochloride (Multaq) 400 Mg Tab, 400 MG PO BID, #60 TAB Prov:CHIDI FLORIAN MD 09/30/22 Information Source: Patient Mode of Arrival: Ambulatory Severity: Moderate Timing: Hours Duration: Since onset, Days Cardiac Risk Factors: HTN History of: Similar pain in past Modifying Factors: Nothing Associated Signs and Symptoms: Palpitations Past Medical History PAST MEDICAL HISTORY: AFIB, HTN, Kidney Stones Surgical History: Denies all surgeries Family History Family History: Reviewed,noncontributory to illness Social History Smoker: Non-Smoker Alcohol: Denies ETOH Use Drugs: Denies Drug Use Lives In: Home Constitutional: denies: chills, diaphoresis, fatigue, fever, malaise, sweats, weakness, others EENTM: denies: blurred vision, double vision, ear bleeding, ear discharge, ear drainage, ear pain, ear ringing, eye pain, eye redness, hearing loss, mouth pain, mouth swelling, nasal discharge, nose bleeding, nose congestion, nose pain, photophobia, tearing, throat pain, throat swelling, voice changes, others Respiratory: denies: cough, hemoptysis, orthopnea, SOB at rest, shortness of breath, SOB with excertion, stridor, wheezing, others Cardiovascular: reports: palpitations; denies: chest pain, dizzy spells, diaphoresis, Dyspnea on exertion, edema, irregular heart beat, left arm pain, lightheadedness, PND, syncope, others Gastrointestinal: denies: abdomen distended, abdominal pain, blood streaked bowels, constipated, diarrhea, dysphagia, difficulty swallowing, hematemesis, melena, nausea, poor appetite, poor fluid intake, rectal bleeding, rectal pain, vomiting, others Genitourinary: denies: burning, dysuria, flank pain, frequency, hematuria, incontinence, penile discharge, penile sore, pain, testicle pain, testicle swelling, urgency, others Neurological: denies: dizziness, fainting, headache, left sided numbness, left sided weakness, numbness, paresthesia, pre-existing deficit, right sided numbness, right sided weakness, seizure, speech problems, tingling, tremors, weakness, others Musculoskeletal: denies: back pain, gout, joint pain, joint swelling, muscle pain, muscle stiffness, neck pain, others Integumetry: denies: bruises, change in color, change in hair/nails, dryness, laceration, lesions, lumps, rash, wounds, others Allergic/Immunocompromised: denies: Difficulty Healing, Frequent Infections, Hives, Itching, others Hematologic/Lymphatic: denies: anemia, blood clots, easy bleeding, easy bruising, swollen glands, others Endocrine: denies: excessive hunger, excessive sweating, excessive thirst, excessive urination, flushing, intolerance to cold, intolerance to heat, unexplained weight gain, unexplained weight loss, others Psychiatric: denies: anxiety, bipolar disorder, depression, hopeless, panic disorder, schizophrenia, sleepless, suicidal, others All Other Systems: Reviewed and Negative Physical Exam General Appearance: Moderate Distress, Normal HEENT: Normal ENT Inspection, Pharynx Normal, TMs Normal Neck: Full Range of Motion, Non-Tender, Normal, Normal Inspection Respiratory: Chest Non-Tender, Lungs Clear, No Accessory Muscle Use, No Respiratory Distress, Normal Breath Sounds Cardiovascular: Irregular, No Edema, No JVD, No Murmur, No Gallop, Normal Peripheral Pulses Breast Exam: Deferred Gastrointestinal: No Organomegaly, Non Tender, No Pulsatile Mass, Normal Bowel Sounds, Soft Genitalia: Deferred Pelvic: Deferred Rectal: Deferred Extremities: No calf tenderness, Normal capillary refill, Normal inspection, Normal range of motion, Non-tender, No pedal edema Musculoskeletal : Apperance: Normal Neurologic: Alert, machine builder II-XII nml as Tested, No Motor Deficits, Normal Affect, Normal Mood, No Sensory Deficits Cerebellar Function: NOT DONE Reflexes: NOT DONE Skin: Dry, Normal Color, Warm Peripheral Pulses: 3+ Radial (R), 3+ Radial (L) Lymphatic: No Adenopathy EKG EKG : Pulse Rate (adult): 131 Cardiac Rhythm: Afib Was a procedure done? Was a procedure done?: No CP Differential Dx Differential Diagnosis: A-fib, A-Flutter, Angina, Anxiety / Panic Attack, Atrial Dysrhythmia, Electrolyte Disorder X-Ray, Labs, Meds, VS Vital Signs Date Time Temp Pulse Resp B/P (MAP) Pulse Ox O2 Delivery O2 Flow Rate FiO2 10/01/24 15:42 131 Patient alert pain Came in because of palpitations. EKG reviewed does show atrial fibrillation. Answering questions. Started amiodarone. He does have a history of atrial fibrillation. 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 Reviewed his history. Explained to the patient. Continue cardiac monitoring. Time of 1ST Reevaluation: 16:01 Reevaluation 1ST: Unchanged Patient Education/Counseling: Diagnosis, Treatment, Prognosis Family Education/Counseling: No Family Present Departure 1 Departure Time of Disposition: 16:06 Impression: Primary Impression: Atrial fibrillation with RVR Disposition: ADMITTED INPATIENT Admit to: Med Surg Condition: Guarded Critical Care Note Critical Care Time?: Yes (90 min-critical care time only) Critical care comment: Atrial fibrillation started amiodarone Stability Stability form required: No Heart Score Heart Score: Heart Score Response (Comments) Value History Slightly Suspicious 0 EKG Normal 0 Age 45-64 1 Risk Factors 1 or 2 risk factors 1 Troponin Normal limit 0 Total 2 I personally scribed for MARIFER SILVESTRE MD ([email or web address]) on 10/01/24 at 15:40. Electronically submitted by Padmini Boston ([email or web address]). MARIFER SILVESTRE MD October 01, 2024 15:40
[2024-10-01 16:12] LABS: Basophils # (auto) 0.1 10 ^3/uL (0-0.2); Basophils % (auto) 0.8 % (0.0-2.0); Eosinophils # (auto) 0.2 10 ^3/uL (0-0.8); Eosinophils % (auto) 2.3 % (0.0-7.0); Hematocrit 44.9 % (41.0-53.0); Hemoglobin 14.9 g/dL (13.5-17.5); Lymphocytes # (auto) 1.3 10 ^3/uL (0.4-5.4); Lymphocytes % (auto) 18.5 % (10.0-50.0); Mean Corpuscular Hemoglobin 28.4 pg (28.0-32.0); Mean Corpuscular Hgb Conc. 33.2 g/dL (32.0-36.0); Mean Corpuscular Volume 85.7 fL (80.0-100.0); Monocytes # (auto) 0.7 10 ^3/uL (0-1.3); Monocytes % (auto) 9.7 % (0.0-12.0); Neutrophils # (auto) 4.8 10 ^3/uL (1.6-8.6); Neutrophils % (auto) 68.7 % (37.0-80.0); Nucleated Red Blood Cells % 0.2 %; Platelet Count (auto) 300 10^3/uL (140-450); Red Blood Cells 5.23 10^6/uL (4.5-5.90); Red Cell Distribution Width 13.2 % (11.8-14.3)
[2024-10-01 16:24] LABS: Chloride 107 mmol/L (98-107); Potassium 4.8 mmol/L (3.5-5.1); Sodium 140 mmol/L (136-145)
[2024-10-01 16:25] LABS: Anion Gap 6 (5-15); Carbon Dioxide 27 mmol/L (20-31)
[2024-10-01 16:31] LABS: BUN/Creatinine Ratio 16.1 (10.0-20.0); Blood Urea Nitrogen 22 mg/dL (9-23); Glucose 104 mg/dL (74-106)
[2024-10-01 16:32] LABS: Calcium 11.2 mg/dL (8.7-10.4)
--- NOTE | 2024-10-01 16:56 | ECG ---
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
[2024-10-01] MEDS ORDERED: ACETAMINOPHEN 325 MG TAB PO PRN (17:00)
[2024-10-01] MEDS ORDERED: NITROGLYCERIN 0.4 MG SL TAB SL PRN (17:00)
[2024-10-01] MEDS ORDERED: MORPHINE SULFATE INJ 2 MG/ml SYRG IV PRN ×2 (17:00)
[2024-10-01] MEDS ORDERED: ONDANSETRON HCL 4 MG/2 ML VIAL IV PRN (17:00)
--- NOTE | 2024-10-01 17:10 | DVHHP2 ---
History of Present Illness Reason for Visit: Palpitations History of Present Illness 49-year-old male with a known history of chronic AFib currently on Multaq and baby aspirin presented to the hospital with palpitation started 12 noon today. The patient stated that he recently missed medication for a day or so eventually started having palpitation found to her AFib with RVR currently on amiodarone drip. Patient denies any chest pain. Denies any fevers chills nausea vomiting diarrhea hematemesis hematochezia melena dysuria hematuria. Cardiovascular: AFIB, HTN Past Surgical History: None Family History: None Smoke: No ALCOHOL: none Review of Systems Review of Systems Twelve review of system were negative aside mentioned above. 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 motor deficit Labs/Xrays Labs Test 10/01/24 15:52 Range/Units White Blood Count 7.0 4.4-10.8 10^3/uL Red Blood Count 5.23 4.5-5.90 10^6/uL Hemoglobin 14.9 13.5-17.5 g/dL Hematocrit 44.9 41.0-53.0 % Mean Corpuscular Volume 85.7 80.0-100.0 fL Mean Corpuscular Hemoglobin 28.4 28.0-32.0 pg Mean Corpuscular Hemoglobin Concent 33.2 32.0-36.0 g/dL Red Cell Distribution Width 13.2 11.8-14.3 % Platelet Count 300 140-450 10^3/uL Mean Platelet Volume 8.1 6.9-10.8 fL Neutrophils (%) (Auto) 68.7 37.0-80.0 % Lymphocytes (%) (Auto) 18.5 10.0-50.0 % Monocytes (%) (Auto) 9.7 0.0-12.0 % Eosinophils (%) (Auto) 2.3 0.0-7.0 % Basophils (%) (Auto) 0.8 0.0-2.0 % Neutrophils # (Auto) 4.8 1.6-8.6 10 ^3/uL Lymphocytes # (Auto) 1.3 0.4-5.4 10 ^3/uL Monocytes # (Auto) 0.7 0-1.3 10 ^3/uL Eosinophils # (Auto) 0.2 0-0.8 10 ^3/uL Basophils # (Auto) 0.1 0-0.2 10 ^3/uL Nucleated Red Blood Cells 0.2 % Sodium Level 140 136-145 mmol/L Potassium Level 4.8 3.5-5.1 mmol/L Chloride Level 107 98-107 mmol/L Carbon Dioxide Level 27 20-31 mmol/L Anion Gap 6 5-15 Blood Urea Nitrogen 22 9-23 mg/dL Creatinine 1.37 H 0.700-1.30 mg/dL Glomerular Filtration Rate Calc 64 >90 mL/min BUN/Creatinine Ratio 16.1 10.0-20.0 Serum Glucose 104 74-106 mg/dL Calcium Level 11.2 H 8.7-10.4 mg/dL Troponin I High Sensitivity 5 </=54 ng/L Assessment/Plan Assessment/Plan 49-year-old male with a known history of chronic AFib presented to the hospital with palpitations found to have 1. AFib with RVR 2. Palpitation 3. Noncompliance -admitting telemetry, 2D echo, cardiology consultation, amiodarone drip -aspirin 81 mg p.o. daily. Plan discussed with: Patient My Orders Orders - LO NEVAREZ MD Procedure Category Date Status Time Admit ADMIT 10/01/24 Verified 16:52 Code Status CODE 10/01/24 Verified 16:52 2 Gm Sodium Diet DIET 10/01/24 Verified Dinner Hydrocodone-Acet PHA 10/01/24 Verified 5/325mg Tab ([place] 17:00 Ondansetron Hcl PHA 10/01/24 Verified (Zofran) 17:00 Condition: Fair STONE 10/01/24 Verified 16:52 Acetaminophen Tablet PHA 10/01/24 Verified (Tylenol Tablet) 17:00 Morphine Sulfate PHA 10/01/24 Verified Injection 17:00 Nitroglycerin PHA 10/01/24 Verified Sublingual (Ntrostat 17:00 Morphine Sulfate PHA 10/01/24 Verified Injection 17:00 Stat Ekg For Chest [facility] 10/01/24 Verified Pain 16:52 Notify Md Of Changes [facility] 10/01/24 Verified From Base 16:52 Therapist Rrt For [facility] 10/01/24 Verified 24 Hours 16:52 Emergency Dysrhythmia [facility] 10/01/24 Verified Protocol 16:52 Rhythm Strips Once [facility] 10/01/24 Verified Every Shift 16:52 Oxygen By Nasal RT 10/01/24 Verified Cannula 16:52 Date of Service: October 01, 2024 Billing Provider: LO NEVAREZ MD Common Visit Codes: NOT BILLABLE LO NEVAREZ MD October 01, 2024 17:10
[2024-10-01] MEDS: SODIUM CHLORIDE 0.9% 1,000 ML IV ONE (17:25)
[2024-10-01] MEDS: AMIODARONE BOLUS KIT 100 ML IV ONE (17:31)
[2024-10-01 17:37] VITALS: PULSE 108; RESP 13; O2SAT 95
[2024-10-01] MEDS: AMIODARONE 360mg/200mL PREMIX 200 ML IV ONE (17:46)
[2024-10-01 18:14] LABS: Urine Bacteria None Seen /hpf (None Seen)
[2024-10-01 18:31] LABS: Urine Blood Negative /uL (Negative); Urine Clarity Clear (Clear); Urine Color Colorless (Yellow); Urine Protein, UAD Negative (Negative); Urine Specific Gravity 1.006 (1.001-1.035); Urine Squamous Epithelial Cell None Seen /hpf (<5); Urine Urobilinogen Normal (Negative)
[2024-10-01 18:32] LABS: Urine WBC < 1 /HPF (0-3)
[2024-10-01 20:29] VITALS: PULSE 89; RESP 12; O2SAT 97
[2024-10-01] MEDS: HYDROcodone-ACET 5/325MG TAB PO PRN (21:56)
[2024-10-02] MEDS: AMIODARONE 360mg/200mL PREMIX 200 ML IV SCH (00:54)
--- NOTE | 2024-10-02 07:18 | DVHINCON2 ---
Date of service: October 02, [address] Love Reason for Consultation Atrial Fibrillation with RVR History of Present Illness This is a 49-year old male known outside to our practice who initially presented with reported palpitations. Patient reports he had developed the palpitation while running with his dog which had not been alleviated by rest prompting further medical evaluation. Of note, patient himself reports prior to the event, he had missed a dose of his Multaq and Atenolol which could have attributed to the clinical picture. Upon ED arrival initial 12-lead electrocardiogram was found consistent atrial fibrillation with a ventricular rate of 131bpm, no acute ischemic changes. Patient was subsequently initiated on IV Amiodarone infusion and admitted for further workup. At present time of consultation, patient has now converted to a sinus rhythm. Initial HS troponin level was found normal at 5 with subsequent repeat level of 5. Of note, patient does have previous history of systolic heart failure with an LVEF of 35-40% (01/2022) that was discovered during previous hospitalization where he was found to have atrial fibrillation with RVR. Patient had later underwent subsequent Echocardiogram (09/2022) revealing an improved LVEF of 55-60% which previous reduction in LVEF had been questionable to underlying tachyarrhythmia during that time of admission back in January of 2022. Patient had later followed up with outpatient cardiology services and was to undergo Stress EKG however has been lost to follow-up. At present, denies any active chest pain, shortness of breath, further palpitations, dizziness, syncope, orthopnea, paroxysmal nocturnal dyspnea, or any further cardiac related symptoms. As the patient presented and was found to be in atrial fibrillation with RVR, Cardiology services were involved by primary team request for cardiac aspects of care. Past Medical History Past medical history includes paroxysmal atrial fibrillation, systolic heart failure, hypertension, kidney stones status post lithotripsy, and medical non- adherence Echocardiogram: (09/2021) revealed LVEF of 60-65% Echocardiogram: (01/2022) revealed LVEF of 35-40% Past Surgical History Reviewed Family History: Hypertension G8 MOTHER G8 FATHER Allergies: Coded Allergies: No Known Drug Allergy (Unverified Allergy, Unknown, 08/15/21) Home Meds Active Scripts Acetaminophen (Tylenol) 650 Mg Rc, 650 MG [place] TID, #30 TAB Prov:ALEXANDRA CLAUDIO 04/29/23 Cephalexin Monohydrate (Cephalexin) 500 Mg Cap, 1 CAP PO TID, #21 CAP Prov:GONZÁLEZARNOLORALIon SHAJI 04/29/23 Aspirin (ASPIRIN 81) 81 Mg Tab, 81 MG PO DAILY, #30 TAB Prov:CHIDI FLORIAN MD 09/30/22 Metoprolol Tartrate (Lopressor) 25 Mg Tb, 50 MG PO BID, #120 TAB Prov:CHIDI FLORIAN MD 09/30/22 Dronedarone Hydrochloride (Multaq) 400 Mg Tab, 400 MG PO BID, #60 TAB Prov:CHIDI FLORIAN MD 09/30/22 Current Medications Current Medications Medications (Trade) Dose Ordered Sig/[place] Route PRN Reason Start Time Stop Time Status Last Admin Acetaminophen/ Hydrocodone Bitart ([place] 5/325MG Tab) 1 tab Q4HP PRN PO MODERATE PAIN (4-6 PAIN SCALE) 10/01/24 17:00 10/01/24 21:56 Ondansetron HCl (Zofran) 4 mg Q4HP PRN IV NAUSEA / VOMITING 10/01/24 17:00 Acetaminophen (Tylenol Tablet) 650 mg Q6HP PRN PO PAIN SCALE 1-3 OR TEMP>100.4 10/01/24 17:00 Morphine Sulfate 2 mg Q4HPRN PRN IV SEVERE PAIN (7-10 PAIN SCALE) 10/01/24 17:00 Nitroglycerin (Ntrostat Sublingual) 0.4 mg Q5MINP PRN SL FOR CHEST PAIN 10/01/24 17:00 Morphine Sulfate 2 mg Q30M PRN IV FOR CHEST PAIN 10/01/24 17:00 Aspirin 81 mg DAILY PO 10/02/24 10:00 Review of Systems A 14-point review of systems is negative unless otherwise noted above Vital Signs Vital Signs Date Time Temp Pulse Resp B/P (MAP) Pulse Ox O2 Delivery O2 Flow Rate FiO2 10/02/24 05:37 98.2 84 12 112/76 (88) 97 98.2 10/01/24 20:29 Room Air* 0 21 Physical Exam Heart: S1 and S2 regular. The patient is in sinus rhythm. Lungs: Clear to auscultation Abdomen: Benign. Extremities: Distal pulses palpable, 2+. No evidence for peripheral edema Labs/Diagnostic Data Labs Test 10/01/24 17:47 10/01/24 17:05 10/01/24 15:52 Range/Units Urine Color Colorless Yellow Urine Clarity Clear Clear Urine pH 5.0 5.0-9.0 Urine Specific [place] 1.006 1.001-1.035 Urine Protein Negative Negative Urine Ketones Negative Negative Urine Blood Negative Negative /uL Urine Nitrite Negative Negative Urine Bilirubin Negative Negative Urine Urobilinogen Normal Negative mg/dL Urine Leukocyte Esterase Negative Negative /uL Urine RBC <1 0 - 3 /hpf Urine Microscopic WBC < 1 0-3 /HPF Urine Squamous Epithelial Cells None seen <5 /hpf Urine Bacteria None seen None Seen /hpf Urine Glucose Normal Normal mg/dL Troponin I High Sensitivity 5 </=54 ng/L White Blood Count 7.0 4.4-10.8 10^3/uL Red Blood Count 5.23 4.5-5.90 10^6/uL Hemoglobin 14.9 13.5-17.5 g/dL Hematocrit 44.9 41.0-53.0 % Mean Corpuscular Volume 85.7 80.0-100.0 fL Mean Corpuscular Hemoglobin 28.4 28.0-32.0 pg Mean Corpuscular Hemoglobin Concent 33.2 32.0-36.0 g/dL Red Cell Distribution Width 13.2 11.8-14.3 % Platelet Count 300 140-450 10^3/uL Mean Platelet Volume 8.1 6.9-10.8 fL Neutrophils (%) (Auto) 68.7 37.0-80.0 % Lymphocytes (%) (Auto) 18.5 10.0-50.0 % Monocytes (%) (Auto) 9.7 0.0-12.0 % Eosinophils (%) (Auto) 2.3 0.0-7.0 % Basophils (%) (Auto) 0.8 0.0-2.0 % Neutrophils # (Auto) 4.8 1.6-8.6 10 ^3/uL Lymphocytes # (Auto) 1.3 0.4-5.4 10 ^3/uL Monocytes # (Auto) 0.7 0-1.3 10 ^3/uL Eosinophils # (Auto) 0.2 0-0.8 10 ^3/uL Basophils # (Auto) 0.1 0-0.2 10 ^3/uL Nucleated Red Blood Cells 0.2 % Sodium Level 140 136-145 mmol/L Potassium Level 4.8 3.5-5.1 mmol/L Chloride Level 107 98-107 mmol/L Carbon Dioxide Level 27 20-31 mmol/L Anion Gap 6 5-15 Blood Urea Nitrogen 22 9-23 mg/dL Creatinine 1.37 H 0.700-1.30 mg/dL Glomerular Filtration Rate Calc 64 >90 mL/min BUN/Creatinine Ratio 16.1 10.0-20.0 Serum Glucose 104 74-106 mg/dL Calcium Level 11.2 H 8.7-10.4 mg/dL Plan/Recommendation ASSESSMENT: This is a 49-year old male known outside to our practice who initially presented with reported palpitations. Patient reports he had developed the palpitation while running with his dog which had not been alleviated by rest prompting further medical evaluation. Of note, patient himself reports prior to the event, he had missed a dose of his Multaq and Atenolol which could have attributed to the clinical picture. Upon ED arrival initial 12-lead electrocardiogram was found consistent atrial fibrillation with a ventricular rate of 131bpm, no acute ischemic changes. Patient was subsequently initiated on IV Amiodarone infusion and admitted for further workup. At present time of consultation, patient has now converted to a sinus rhythm. Initial HS troponin level was found normal at 5 with subsequent repeat level of 5. Of note, patient does have previous history of systolic heart failure with an LVEF of 35-40% (01/2022) that was discovered during previous hospitalization where he was found to have atrial fibrillation with RVR. Patient had later underwent subsequent Echocardiogram (09/2022) reve aling an improved LVEF of 55-60% which previous reduction in LVEF had been questionable to underlying tachyarrhythmia during that time of admission back in January of 2022. Patient had later followed up with outpatient cardiology services and was to undergo Stress EKG however has been lost to follow-up. At present, denies any active chest pain, shortness of breath, further palpi tations, dizziness, syncope, orthopnea, paroxysmal nocturnal dyspnea, or any further cardiac related symptoms. As the patient presented and was found to be in atrial fibrillation with RVR, Cardiology services were involved by primary team request for cardiac aspects of care. Past medical history includes paroxysmal atrial fibrillation, systolic heart failure, hypertension, kidney stones status post lithotripsy, and medical non- adherence Echocardiogram: (09/2021) revealed LVEF of 60-65% Echocardiogram: (01/2022) revealed LVEF of 35-40% Echocardiogram: (09/2022) revealed LVEF of 55-60% Paroxysmal atrial fibrillation, with RVR (currently sinus) Systolic heart failure (history of), with improved LVEF Hypertension, controlled Medical non-adherence CARDIAC SUGGESTIONS FOR MANAGEMENT: Consider request for UDS Request for 2D Echocardiogram Request for thyroid function test Discontinue current Amiodarone infusion Recommended transitioning to oral Amiodarone as for now Patient however insists on proceeding with previous Multaq/Atenolol Recommend full dose anticoagulation as for now until LVEF is determined If systolic dysfunction present, full [place] [facility] AC for CVA prophylaxis is advised If systolic function is preserved, Aspirin 81mg daily can be justified for now Counseled on importance of adherence to medical therapy/follow ups Proceed with close rate and rhythm surveillance Proceed with close hemodynamic surveillance Proceed with optimized blood pressure control Transfuse to sustain HGB level above 7.0 Sustain Magnesium level greater than 2.0 Sustain Potassium level greater than 4.0 Follow up renal function and electrolytes Management in telemetry Follow up ux consultant recommendations Will proceed to follow from a cardiac perspective Further recommendations per clinical progression All available diagnostic labs, EKG's, and images were personally reviewed Patient's status, findings, and plan of care was reviewed and discussed with supervising physician Dr. Lopez, who is in agreement with current plan of care. Plan of care discussed with and agreed upon by patient / primary RN Prognosis: Guarded Thank you for allowing me to participate in the care of this patient. Further recommendations based on patients clinical course and progression, primary attending, and other consultants. Will continue to follow with primary attending. If you have any questions or concerns, please do not hesitate to contact me. A total of 75 minutes was spent reviewing the patient record, examining the patient, making a diagnostic and therapeutic plan, discussing this plan with medical personnel, following up on diagnostic studies and following the patient for clinical stability excluding any and all procedures. At least 50% of this time was spent in direct, [id number] contact. Plan discussed with: Patient (Patient and Primary RN ) ITA FRAZIER October 02, 2024 07:18
[2024-10-02 08:00] VITALS: TEMP 98.1
--- NOTE | 2024-10-02 08:58 | ECG ---
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
[2024-10-02] MEDS: ASPirin 81 mg TAB PO SCH (10:00)
[2024-10-02 12:00] VITALS: BP 127/87; PULSE 82; RESP 18; O2SAT 97
--- NOTE | 2024-10-02 15:23 | DVHDS2 ---
Discharge Summary Date of Admission October 01, 2024 at 16:52 Date of Discharge: October 02, 2024 Labs/Diagnostic Data: Laboratory Results Test 10/01/24 17:47 10/01/24 17:05 10/01/24 15:52 Urine Color Colorless (Yellow) Urine Clarity Clear (Clear) Urine pH 5.0 (5.0-9.0) Urine Specific [place] 1.006 (1.001-1.035) Urine Protein Negative (Negative) Urine Ketones Negative (Negative) Urine Blood Negative /uL (Negative) Urine Nitrite Negative (Negative) Urine Bilirubin Negative (Negative) Urine Urobilinogen Normal mg/dL (Negative) Urine Leukocyte Esterase Negative /uL (Negative) Urine RBC <1 /hpf (0 - 3) Urine Microscopic WBC < 1 /HPF (0-3) Urine Squamous Epithelial Cells None seen /hpf (<5) Urine Bacteria None seen /hpf (None Seen) Urine Glucose Normal mg/dL (Normal) Troponin I High Sensitivity 5 ng/L (</=54) White Blood Count 7.0 10^3/uL (4.4-10.8) Red Blood Count 5.23 10^6/uL (4.5-5.90) Hemoglobin 14.9 g/dL (13.5-17.5) Hematocrit 44.9 % (41.0-53.0) Mean Corpuscular Volume 85.7 fL (80.0-100.0) Mean Corpuscular Hemoglobin 28.4 pg (28.0-32.0) Mean Corpuscular Hemoglobin Concent 33.2 g/dL (32.0-36.0) Red Cell Distribution Width 13.2 % (11.8-14.3) Platelet Count 300 10^3/uL (140-450) Mean Platelet Volume 8.1 fL (6.9-10.8) Neutrophils (%) (Auto) 68.7 % (37.0-80.0) Lymphocytes (%) (Auto) 18.5 % (10.0-50.0) Monocytes (%) (Auto) 9.7 % (0.0-12.0) Eosinophils (%) (Auto) 2.3 % (0.0-7.0) Basophils (%) (Auto) 0.8 % (0.0-2.0) Neutrophils # (Auto) 4.8 10 ^3/uL (1.6-8.6) Lymphocytes # (Auto) 1.3 10 ^3/uL (0.4-5.4) Monocytes # (Auto) 0.7 10 ^3/uL (0-1.3) Eosinophils # (Auto) 0.2 10 ^3/uL (0-0.8) Basophils # (Auto) 0.1 10 ^3/uL (0-0.2) Nucleated Red Blood Cells 0.2 % Sodium Level 140 mmol/L (136-145) Potassium Level 4.8 mmol/L (3.5-5.1) Chloride Level 107 mmol/L (98-107) Carbon Dioxide Level 27 mmol/L (20-31) Anion Gap 6 (5-15) Blood Urea Nitrogen 22 mg/dL (9-23) Creatinine 1.37 mg/dL (0.700-1.30) Glomerular Filtration Rate Calc 64 mL/min (>90) BUN/Creatinine Ratio 16.1 (10.0-20.0) Serum Glucose 104 mg/dL (74-106) Calcium Level 11.2 mg/dL (8.7-10.4) Other Laboratory Tests 10/01/24 15:52 Brief Hx & Hospital Course: 49-year-old male with a known history of chronic AFib presented to the hospital with palpitations found to have AFib with RVR. Patient was started on IV amiodarone drip. Cardiology was consulted. Patient does take Multaq and beta alejandra at home and baby aspirin as well. Patient left against medical advice before completion of workup and treatment. Condition at Discharge: Undetermined Final Diagnosis/Problems List 49-year-old male with a known history of chronic AFib presented to the hospital with palpitations found to have 1. AFib with RVR 2. Palpitation 3. Noncompliance -admitting telemetry, 2D Discharge Disposition: AMA SNF Discharge Will this Physician continue t: No Discharge Statement: "Patient was advised to return to the ER or call 911 if any headaches, dizziness, shortness of breath, chest pain, abdominal pain, bleeding, fevers, or worsening of medical condition. Patient was counseled about treatment plan, medications, possible side effects, patient�verbalized understanding. All questions were answered to the best of my ability. This discharge took greater then 30 minutes in planning, reviewing documentation, counseling the patient, and discussing with other team members." ASSESSMENT ASSESSMENT Assessment Date of Service: October 02, 2024 Billing Provider: LO NEVAREZ MD Common Visit Codes: NOT BILLABLE LO NEVAREZ MD October 02, 2024 15:23
--- NOTE | 2024-10-03 16:01 | DVHSR ---
APPROVED REPORT EXAM: Two-dimensional and M-mode echocardiogram with Doppler and color Doppler. Blood Pressure: 106/79 mmHg INDICATION Atrial Fibrillation RISK FACTORS Height: 5'9", Weight: 149 DIMENSIONS LVDd4.3 (3.8-5.7cm)LA (2D)3.2 (1.9-4.0cm)Aortic Root3.2 (2.0-3.7cm) LVDs2.8 (2.5-4.0cm)LA (MM) (1.9-4.0cm)Aortic Cusp Exc1.8 (1.5-2.0cm) EF (%) 65.0 (55-70%)Rt. Atrium3.9 (1.9-4.0cm)Asc. Aorta cm IVSd0.9 (0.7-1.1cm)RV (D)3.2 (1.8-2.4cm) PWd1.0 (0.7-1.1cm) Mitral Valve MitralMitral Stenosis E wave0.62m/sMV Mean GR.mmHg A wave0.54m/sMV Peak GR.mmHg E/A ratio1.12D MVAcm2 DECEL [id number] 1/2 Tim[place] Aortic Valve Aortic ValveAortic Stenosis V10.92m/Davida Mean GR.3mmHg V21.19m/Davida Peak GR.6mmHg LVOT Diameter1.9 (1.8-2.4cm)Doppler AVA2.19cm2 Pulmonic Valve V20.73m/s Conclusion Technically difficult study. Sinus rhythm. Normal chamber sizes. Normal valves. EF of 60% with normal RV function. Dopplers unremarkable. No pericardial effusion masses or vegetations.
== END 2024-10-02 13:57 | disposition left against medical advice (07) | DRG 201 ==
LOC: ER 15:33 → OVERFLOW 16:52
PROVIDERS: ADMIT Internal Medicine; ATTEND Internal Medicine
DX: I48.91 Unspecified atrial fibrillation (principal); I11.0 Hypertensive heart disease with heart failure; I50.22 Chronic systolic (congestive) heart failure; Z53.29 Procedure and treatment not carried out because of patient's decision for other reasons; Z91.199 Patient's noncompliance with other medical treatment and regimen due to unspecified reason; Z82.49 Family history of ischemic heart disease and other diseases of the circulatory system; Z79.1 Long term (current) use of non-steroidal anti-inflammatories (NSAID); Z79.2 Long term (current) use of antibiotics; Z79.82 Long term (current) use of aspirin; Z87.442 Personal history of urinary calculi
CPT/HCPCS: 36415; 80048; 81001; 84484; 85025; 93005; 93306; 96360; 99291; G0378

== ENCOUNTER 2024-11-01 08:13 | Emergency (ER) | payer MEDICAID ==
[~2024-11-01] VITALS: Ht 175.3 cm; Wt 68.3 kg
--- NOTE | 2024-11-01 08:26 | ED.PDOC ---
GI ASSESSMENT HPI Comments A 49 year old male presents to the ED c/o diarrhea ad RUQ abdominal pain. Patient states he has been experiencing diarrhea and right upper quadrant abdominal pain for the past 2 days. Patient rates the severity of his pain as 4/10 at this time. Patient notes he has been taking Amoxicillin for a dental infection for the past 1.5 days, but is not sure if this is what is causing his symptoms or if it is something else. Patient denies fever, SOB, chest pain, nausea, vomiting, headache, dizziness, dysuria, hematuria, flank pain. No other symptoms or modifying factors reported at this time. Patient is alert and oriented x4 and has a stable gait. Chief Complaint: Diarrhea Time Seen by MD: 08:18 Primary Care Provider: KATLYN Fink Notes: Nurses Notes, Medications, Allergies Allergies: Coded Allergies: No Known Drug Allergy (Unverified Allergy, Unknown, 08/15/21) Home Meds Active Scripts Acetaminophen (Tylenol) 650 Mg Rc, 650 MG [place] TID, #30 TAB Prov:ALEXANDRA CLAUDIO 04/29/23 Cephalexin Monohydrate (Cephalexin) 500 Mg Cap, 1 CAP PO TID, #21 CAP Prov:ALEXANDRA CLAUDIO 04/29/23 Aspirin (ASPIRIN 81) 81 Mg Tab, 81 MG PO DAILY, #30 TAB Prov:CHIDI FLORIAN MD 09/30/22 Metoprolol Tartrate (Lopressor) 25 Mg Tb, 50 MG PO BID, #120 TAB Prov:CHIDI FLORIAN MD 09/30/22 Dronedarone Hydrochloride (Multaq) 400 Mg Tab, 400 MG PO BID, #60 TAB Prov:CHIDI FLORIAN MD 09/30/22 Information Source: Patient Mode of Arrival: Ambulatory Timing: Days Duration: Since onset, Days Prehospital treatment: None Quality: Aching, Cramping Vomitus: None Stool: Loose, Watery Severity: Moderate Recent: Antibiotics (Amoxicillin) Pain Location: RUQ Modifying Factors: Nothing Associated sign and symptoms: Diarrhea, Abdominal Pain Past Medical History PAST MEDICAL HISTORY: AFIB, HTN, Kidney Stones Surgical History: Denies all surgeries Family History Family History: Reviewed,noncontributory to illness Social History Smoker: Non-Smoker Alcohol: Denies ETOH Use Drugs: Denies Drug Use Lives In: Home Constitutional: denies: chills, diaphoresis, fatigue, fever, malaise, sweats, weakness, others EENTM: denies: blurred vision, double vision, ear bleeding, ear discharge, ear drainage, ear pain, ear ringing, eye pain, eye redness, hearing loss, mouth pain, mouth swelling, nasal discharge, nose bleeding, nose congestion, nose pain, photophobia, tearing, throat pain, throat swelling, voice changes, others Respiratory: denies: cough, hemoptysis, orthopnea, SOB at rest, shortness of breath, SOB with excertion, stridor, wheezing, others Cardiovascular: denies: chest pain, dizzy spells, diaphoresis, Dyspnea on exertion, edema, irregular heart beat, left arm pain, lightheadedness, palpitations, PND, syncope, others Gastrointestinal: reports: abdominal pain, diarrhea; denies: abdomen distended, blood streaked bowels, constipated, dysphagia, difficulty swallowing, hematemesis, melena, nausea, poor appetite, poor fluid intake, rectal bleeding, rectal pain, vomiting, others Genitourinary: denies: burning, dysuria, flank pain, frequency, hematuria, inc ontinence, penile discharge, penile sore, pain, testicle pain, testicle swelling, urgency, others Neurological: denies: dizziness, fainting, headache, left sided numbness, left sided weakness, numbness, paresthesia, pre-existing deficit, right sided numbness, right sided weakness, seizure, speech problems, tingling, tremors, weakness, others Musculoskeletal: denies: back pain, gout, joint pain, joint swelling, muscle pain, muscle stiffness, neck pain, others Integumetry: denies: bruises, change in color, change in hair/nails, dryness, laceration, lesions, lumps, rash, wounds, others Allergic/Immunocompromised: denies: Difficulty Healing, Frequent Infections, Hives, Itching, others Hematologic/Lymphatic: denies: anemia, blood clots, easy bleeding, easy bruising, swollen glands, others Endocrine: denies: excessive hunger, excessive sweating, excessive thirst, excessive urination, flushing, intolerance to cold, intolerance to heat, unexplained weight gain, unexplained weight loss, others Psychiatric: denies: anxiety, bipolar disorder, depression, hopeless, panic disorder, schizophrenia, sleepless, suicidal, others All Other Systems: Reviewed and Negative Physical Exam General Appearance: No Apparent Distress, Normal HEENT: Normal ENT Inspection, Pharynx Normal, TMs Normal Neck: Full Range of Motion, Non-Tender, Normal, Normal Inspection Respiratory: Chest Non-Tender, Lungs Clear, No Accessory Muscle Use, No Respiratory Distress, Normal Breath Sounds Cardiovascular: No Edema, No JVD, No Murmur, No Gallop, Normal Peripheral Pulses, Regular Rate/Rhythm Breast Exam: Deferred Gastrointestinal: No Organomegaly, No Pulsatile Mass, Normal Bowel Sounds, RUQ (RUQ tenderness noted upon palpation.), Soft Genitalia: Deferred Pelvic: Deferred Rectal: Deferred Extremities: No calf tenderness, Normal capillary refill, Normal inspection, Normal range of motion, Non-tender, No pedal edema Musculoskeletal : Apperance: Normal Neurologic: Alert, 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 Was a procedure done?: No GI differential Dx Differential Diagnosis: Appendicitis, Bowel Obstruction, Cholecystitis, Constipation, Diverticular disease, Gastritis/PUD, Gastroenteritis, Hernia, Hepatitis, Inflammatory BD, UTI, Urolithiasis, Dehydration, Electrolyte Imbalance, Food Poisoning, Viral, Impaction, Kidney Stone X-Ray, Labs, Meds, VS Vital Signs Date Time Temp Pulse Resp B/P (MAP) Pulse Ox O2 Delivery O2 Flow Rate FiO2 11/01/24 11:15 54 16 132/80 (97) 99 11/01/24 11:15 54 16 99 Room Air* 0 21 11/01/24 10:13 97.7 48 20 141/89 (106) 99 97.7 11/01/24 10:13 48 20 99 Room Air 11/01/24 08:19 98.5 56 16 143/78 (99) 99 98.5 Lab Test 11/01/24 09:13 11/01/24 08:20 Range/Units White Blood Count 6.7 4.4-10.8 10^3/uL Red Blood Count 4.78 4.5-5.90 10^6/uL Hemoglobin 14.2 13.5-17.5 g/dL Hematocrit 40.4 L 41.0-53.0 % Mean Corpuscular Volume 84.4 80.0-100.0 fL Mean Corpuscular Hemoglobin 29.6 28.0-32.0 pg Mean Corpuscular Hemoglobin Concent 35.1 32.0-36.0 g/dL Red Cell Distribution Width 13.2 11.8-14.3 % Platelet Count 262 140-450 10^3/uL Mean Platelet Volume 7.9 6.9-10.8 fL Neutrophils (%) (Auto) 72.6 37.0-80.0 % Lymphocytes (%) (Auto) 17.3 10.0-50.0 % Monocytes (%) (Auto) 7.6 0.0-12.0 % Eosinophils (%) (Auto) 1.9 0.0-7.0 % Basophils (%) (Auto) 0.6 0.0-2.0 % Neutrophils # (Auto) 4.9 1.6-8.6 10 ^3/uL Lymphocytes # (Auto) 1.2 0.4-5.4 10 ^3/uL Monocytes # (Auto) 0.5 0-1.3 10 ^3/uL Eosinophils # (Auto) 0.1 0-0.8 10 ^3/uL Basophils # (Auto) 0 0-0.2 10 ^3/uL Nucleated Red Blood Cells 0.0 % Sodium Level 137 136-145 mmol/L Potassium Level 4.0 3.5-5.1 mmol/L Chloride Level 105 98-107 mmol/L Carbon Dioxide Level 25 20-31 mmol/L Anion Gap 7 5-15 Blood Urea Nitrogen 18 9-23 mg/dL Creatinine 1.21 0.700-1.30 mg/dL Glomerular Filtration Rate Calc 74 >90 mL/min BUN/Creatinine Ratio 14.9 10.0-20.0 Serum Glucose 103 74-106 mg/dL Calcium Level 9.7 8.7-10.4 mg/dL Total Bilirubin 0.5 0.2-1.0 mg/dL Aspartate Amino Transferase (AST) 21 0-34 U/L Alanine Aminotransferase (ALT) 21 7-40 U/L Alkaline Phosphatase 92 46-116 U/L Total Protein 7.2 5.7-8.2 g/dL Albumin 4.4 3.2-4.8 g/dL Urine Color Yellow Yellow Urine Clarity Turbid H Clear Urine pH 5.5 5.0-9.0 Urine Specific [place] 1.027 1.001-1.035 Urine Protein Trace H Negative Urine Ketones Negative Negative Urine Blood 3+ H Negative /uL Urine Nitrite Negative Negative Urine Bilirubin Negative Negative Urine Urobilinogen Normal Negative mg/dL Urine Leukocyte Esterase Negative Negative /uL Urine RBC 371 0 - 3 /hpf Urine Microscopic WBC < 1 0-3 /HPF Urine Squamous Epithelial Cells Few <5 /hpf Urine Bacteria None seen None Seen /hpf Urine Mucus Few None Seen Urine Glucose Normal Normal mg/dL Current Medications Medications (Trade) Dose Ordered Sig/[place] Route Start Time Stop Time Status Last Admin Sodium Chloride 1,000 ml @ 1,000 mls/hr Q1H ONCE IV 11/01/24 08:30 11/01/24 09:29 DC 11/01/24 11:20 Loperamide HCl (Imodium Capsule) 2 mg ONCE ONCE PO 11/01/24 08:30 11/01/24 08:31 DC 11/01/24 09:48 Acetaminophen/ Hydrocodone Bitart ([place] 5/325MG Tab) 1 tab ONCE ONCE PO 11/01/24 10:00 11/01/24 10:01 DC 11/01/24 09:54 CLINICAL INFORMATION: 49 years old, Male; ruq pain, FLANK PAIN. TECHNIQUE: Grayscale sonographic imaging of the abdomen was performed, assisted by color Doppler technique. COMPARISON: CT I'm pelvis 08/26/22 FINDINGS: The gallbladder wall measures 2 mm. No stones are seen. The common bile duct measures 3 mm. The liver measures 16.9 cm in length and demonstrates diffusely increased echoge nicity. No focal lesions. The pancreas is partly obscured, likely by bowel gas. The visualized portions appear normal. The right kidney measures 10 cm in length. Mild right hydronephrosis. There is a 5mm calculus in the lower pole of the right kidney which appears nonobstructive. 1.7 cm right renal cyst. Increased echogenicity of the right renal cortex. The left kidney measures 9.5 cm in length. There is no hydronephrosis. Increased echogenicity of the left renal cortex. The spleen is not visualized. IVC is patent. No abdominal aortic aneurysm. IMPRESSION: 1. Mild right hydronephrosis with a 5 mm nonobstructing calculus in the lower pole of the right kidney. Recommend further evaluation with CT abdomen pelvis without contrast to evaluate for obstructing stone or mass. 2. Echogenic kidneys, suggesting medical renal disease. 3. Hepatosteatosis and borderline hepatomegaly. ATED BY: JERRY RIVERA MD DICTATED DATE/TIME: 11/01/24927 SIGNED BY: JERRY RIVERA MD SIGNED DATE/TIME: 11/01/24927 CC: EXAM: XY KUB ABDOMEN SINGLE VIEW HISTORY: diarrhea COMPARISON: KUB ABDOMEN SINGLE VIEW on DOS: 07/09/21, KUB ABDOMEN SINGLE VIEW on DOS: 12/21/20 TECHNIQUE: Supine AP view of the abdomen was performed. FINDINGS: No abnormal bowel dilatation. Gas is present in the distal colon. No abnormal calcifications are identified overlying the urinary tract. IMPRESSION: No evidence of bowel obstruction. ATED BY: DAYSI SCHROEDER MD DICTATED DATE/TIME: 11/01/24948 SIGNED BY: DAYSI SCHROEDER MD SIGNED DATE/TIME: 11/01/24948 CC: X-Ray, Labs, Meds, VS Comment External medical records reviewed: [None] Independent historians: [None] Social determinants of health: [None] Labs ordered: CBC, CMP, UA Reviewed and interpreted results: Blood 3+ Radiology imaging ordered: US Abdomen, XR abdomen (KUB) Treatments ordered: NS 1L IV, Imodium 2mg PO, Tylenol 650mg PO, [place] 5/325mg PO Procedures performed: None Critical care time: None Based on the history of present illness and physical exam, patient will be discharged home. Shared decision making:Patient instructed to follow up with their primary care physician in 1-2 days for re-evaluation of symptoms. Patient verbalizes understanding to return to ED for new or worsening symptoms of if follow up with PCP cannot be obtained. Patient understands and feels comfortable going home at this time. All questions addressed at time of discharge. Images Reviewed?: Images reviewed and evaluated by me Time of 1ST Reevaluation: 12:56 Reevaluation 1ST: Improved Patient Education/Counseling: Diagnosis, Treatment, Need For Follow Up Family Education/Counseling: Diagnosis, Treatment, Need For Follow Up Additional Information pt has a small kidney stone in the kidney ,not in the ureter. he does not have any signs of an UTI Departure 1 Departure Time of Disposition: 12:52 Impression: Primary Impression: Diarrhea Qualified Codes: R19.7 - Diarrhea, unspecified Additional Impression: Kidney stone Disposition: HOME / SELF CARE / HOMELESS Condition: Stable Additional Instructions: Follow up with PCP in 1-2 days. Take medications as prescribed. Return to ED for any new or worsening symptoms. e-Prescriptions Dicyclomine Hcl (BENTYL CAPSULE) 10 Mg Cp 1 CAP PO TID, #90 CAP 11 Refills Prov: EILEEN KOEHLER MD 11/01/24 Loperamide Hcl (Imodium) 2 Mg Cp 2 MG PO BID PRN, #1 CAP Prov: EILEEN KOEHLER MD 11/01/24 Tamsulosin Hcl (Flomax) 0.4 Mg Cap 1 CAP PO DAILY, #30 CAP 11 Refills Prov: EILEEN KOEHLER MD 11/01/24 Hydrocodone-Acetaminophen (Hydrocodone Bitartrate/AC 5-325 mg) 1 Tab Tab 1 TAB PO Q6HP PRN for 3 Days, #12 TAB Prov: EILEEN KOEHLER MD 11/01/24 Discharged With: Self Critical Care Note Critical Care Time?: No Stability Stability form required: No I personally scribed for EILEEN KOEHLER MD (IRENE) on 11/01/24 at 08:26. Electronically submitted by Reinier Kaplan ([employer]). I personally scribed for EILEEN KOEHLER MD (EDEN) on 11/01/24 at 08:28. Electronically submitted by Reinier Kaplan ([employer]). I personally scribed for EILEEN KOEHLER MD (EDEN) on 11/01/24 at 09:33. Electronically submitted by Reinier Kaplan ([employer]). I personally scribed for EILEEN KOEHLER MD (EDEN) on 11/01/24 at 10:14. Electronically submitted by Reinier Kaplan ([employer]). I personally scribed for EILEEN KOEHLER MD (EDEN) on 11/01/24 at 11:27. Electronically submitted by Reinier Kaplan ([employer]). I personally scribed for EILEEN KOEHLER MD (IRENE) on 11/01/24 at 11:52. Electronically submitted by Reinier Kaplan ([employer]). I personally scribed for EILEEN KOEHLER MD (IRENE) on 11/01/24 at 12:51. Electronically submitted by Reinier Kaplan (MATT). EILEEN KOHELER MD Nov 01, 2024 08:26
[2024-11-01 09:22] LABS: Basophils # (auto) 0 10 ^3/uL (0-0.2); Basophils % (auto) 0.6 % (0.0-2.0); Eosinophils # (auto) 0.1 10 ^3/uL (0-0.8); Eosinophils % (auto) 1.9 % (0.0-7.0); Hematocrit 40.4 % (41.0-53.0); Hemoglobin 14.2 g/dL (13.5-17.5); Lymphocytes # (auto) 1.2 10 ^3/uL (0.4-5.4); Lymphocytes % (auto) 17.3 % (10.0-50.0); Mean Corpuscular Hemoglobin 29.6 pg (28.0-32.0); Mean Corpuscular Hgb Conc. 35.1 g/dL (32.0-36.0); Mean Corpuscular Volume 84.4 fL (80.0-100.0); Monocytes # (auto) 0.5 10 ^3/uL (0-1.3); Monocytes % (auto) 7.6 % (0.0-12.0); Neutrophils # (auto) 4.9 10 ^3/uL (1.6-8.6); Neutrophils % (auto) 72.6 % (37.0-80.0); Platelet Count (auto) 262 10^3/uL (140-450); Red Blood Cells 4.78 10^6/uL (4.5-5.90); Red Cell Distribution Width 13.2 % (11.8-14.3); White Blood Cell 6.7 10^3/uL (4.4-10.8)
--- NOTE | 2024-11-01 09:31 | DVH ---
CLINICAL INFORMATION: 49 years old, Male; ruq pain, FLANK PAIN. TECHNIQUE: Grayscale sonographic imaging of the abdomen was performed, assisted by color Doppler hernandez hnique. COMPARISON: CT I'm pelvis 08/26/22 FINDINGS: The gallbladder wall measures 2 mm. No stones are seen. The common bile duct measures 3 m m. The liver measures 16.9 cm in length and demonstrates diffusely increased echogenicity. No focal lesi ons. The pancreas is partly obscured, likely by bowel gas. The visualized portions appear normal. The right kidney measures 10 cm in length. Mild right hydronephrosis. There is a 5mm calculus in the lower pole of the right kidney which appears nonobstructive. 1.7 cm right renal cyst. Increased ech ogenicity of the right renal cortex. The left kidney measures 9.5 cm in length. There is no hydronephrosis. Increased echogenicity of th e left renal cortex. The spleen is not visualized. IVC is patent. No abdominal aortic aneurysm. IMPRESSION: 1. Mild right hydronephrosis with a 5 mm nonobstructing calculus in the lower pole of the right kidne y. Recommend further evaluation with CT abdomen pelvis without contrast to evaluate for obstructing s tone or mass. 2. Echogenic kidneys, suggesting medical renal disease. 3. Hepatosteatosis and borderline hepatomegaly.
[2024-11-01 09:42] LABS: Urine Bacteria None Seen /hpf (None Seen)
[2024-11-01] MEDS: ACETAMINOPHEN 325 MG TAB PO ONE (09:47)
[2024-11-01] MEDS: LOPERAMIDE HCL 2 MG CAP/TAB PO ONE (09:48)
--- NOTE | 2024-11-01 09:52 | DVH ---
EXAM: XY KUB ABDOMEN SINGLE VIEW HISTORY: diarrhea COMPARISON: KUB ABDOMEN SINGLE VIEW on DOS: 07/09/21, KUB ABDOMEN SINGLE VIEW on DOS: 12/21/20 TECHNIQUE: Supine AP view of the abdomen was performed. FINDINGS: No abnormal bowel dilatation. Gas is present in the distal colon. No abnormal calcifications are id entified overlying the urinary tract. IMPRESSION: No evidence of bowel obstruction.
[2024-11-01] MEDS: HYDROcodone-ACET 5/325MG TAB PO ONE (09:54)
[2024-11-01 09:57] LABS: Urine Blood 3+ /uL (Negative); Urine Clarity Turbid (Clear); Urine Color Yellow (Yellow); Urine Mucus FEW (None Seen); Urine Protein, UAD TRACE (Negative); Urine Specific Gravity 1.027 (1.001-1.035); Urine Squamous Epithelial Cell FEW /hpf (<5); Urine Urobilinogen Normal (Negative); Urine WBC < 1 /HPF (0-3); Urine pH 5.5 (5.0-9.0)
[2024-11-01 11:07] LABS: Alanine Aminotransferase 21 U/L (7-40); Albumin 4.4 g/dL (3.2-4.8); Alkaline Phosphatase 92 U/L (46-116); Anion Gap 7 (5-15); Aspartate Aminotransferase 21 U/L (0-34); BUN/Creatinine Ratio 14.9 (10.0-20.0); Bilirubin, Total 0.5 mg/dL (0.2-1.0); Blood Urea Nitrogen 18 mg/dL (9-23); Calcium 9.7 mg/dL (8.7-10.4); Carbon Dioxide 25 mmol/L (20-31); Chloride 105 mmol/L (98-107); Glucose 103 mg/dL (74-106); Sodium 137 mmol/L (136-145); Total Protein 7.2 g/dL (5.7-8.2)
[2024-11-01 11:15] VITALS: PULSE 54; RESP 16; O2SAT 99
[2024-11-01] MEDS: SODIUM CHLORIDE 0.9% 1,000 ML IV ONE (11:20)
[2024-11-01] MEDS ORDERED: LOPE2CAP16 PO (12:55)
[2024-11-01] MEDS ORDERED: TAMS-35 PO (12:55)
[2024-11-01] MEDS ORDERED: DICY10CA PO (12:55)
[2024-11-01] MEDS ORDERED: HYDR-4902 PO (12:55)
[2024-11-01 13:07] VITALS: BP 145/87; PULSE 55; RESP 20; TEMP 97.9; O2SAT 98
== END 2024-11-01 13:17 | disposition home or self-care (01) ==
LOC: ER 08:13
DX: N13.2 Hydronephrosis with renal and ureteral calculous obstruction (principal); R19.7 Diarrhea, unspecified; I10 Essential (primary) hypertension; I48.91 Unspecified atrial fibrillation; Z87.442 Personal history of urinary calculi; Z79.899 Other long term (current) drug therapy; Z79.82 Long term (current) use of aspirin; Z79.2 Long term (current) use of antibiotics
CPT/HCPCS: 36415; 74018; 76700; 80053; 81001; 85025; 96360; 99284; J7030

== ENCOUNTER 2024-11-24 07:20 | Emergency (ER) | payer MEDICAID ==
[~2024-11-24] VITALS: Ht 175.3 cm; Wt 67.7 kg
[~2024-11-24 07:20] MED LIST changes: +DICY10CA PO; +HYDR-4902 PO; +LOPE2CAP16 PO; +TAMS-35 PO
--- NOTE | 2024-11-24 07:52 | ED.PDOC ---
History of Present Illness HPI Comments 49-year-old male presents with a chief complaint of testicle pain and abdominal pain. Patient states that his pain is localized to his right testicle, radiates to his periumbilical region, and rates his pain a 7/10. 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 Chief Complaint: Testicle Pain Time Seen by MD: 07:47 Primary Care Provider: UNKNOWN Reviewed Notes: Medications, Allergies Allergies: Coded Allergies: No Known Drug Allergy (Unverified Allergy, Unknown, 08/15/21) Home Meds Active Scripts Ibuprofen Micronized (MOTRIN TABLET) 600 Mg Tb, 600 MG PO TID PRN for 5 Days, #15 TAB *Black box warning-NSAIDS can increase risk of SD & hypertension, GI irritation, ulceration, bleed, perferation. Do not use post cardiac surgery. Use short duration/lowest effective dose. Prov:MARIFER SILVESTRE MD 11/24/24 Dicyclomine Hcl (BENTYL CAPSULE) 10 Mg Cp, 1 CAP PO TID, #90 CAP 11 Refills Prov:EILEEN KOEHLER MD 11/01/24 Loperamide Hcl (Imodium) 2 Mg Cp, 2 MG PO BID PRN, #1 CAP Prov:EILEEN KOEHLER MD 11/01/24 Tamsulosin Hcl (Flomax) 0.4 Mg Cap, 1 CAP PO DAILY, #30 CAP 11 Refills Prov:EILEEN KOEHLER MD 11/01/24 Hydrocodone-Acetaminophen (Hydrocodone Bitartrate/AC 5-325 mg) 1 Tab Tab, 1 TAB PO Q6HP PRN for 3 Days, #12 TAB Prov:EILEEN KOEHLER MD 11/01/24 Acetaminophen (Tylenol) 650 Mg Rc, 650 MG WI TID, #30 TAB Prov:ALEXANDRA CLAUDIO 04/29/23 Cephalexin Monohydrate (Cephalexin) 500 Mg Cap, 1 CAP PO TID, #21 CAP Prov:ALEXANDRA CLAUDIO 04/29/23 Aspirin (ASPIRIN 81) 81 Mg Tab, 81 MG PO DAILY, #30 TAB Prov:CHIDI FLORIAN MD 09/30/22 Metoprolol Tartrate (Lopressor) 25 Mg Tb, 50 MG PO BID, #120 TAB Prov:CHIDI FLORIAN MD 09/30/22 Dronedarone Hydrochloride (Multaq) 400 Mg Tab, 400 MG PO BID, #60 TAB Prov:CHIDI FLORIAN MD 09/30/22 Information Source: Patient Mode of Arrival: Ambulatory Severity: Moderate Timing: Days Duration: Since onset Prehospital treatment: None Past Medical History PAST MEDICAL HISTORY: AFIB, HTN, Kidney Stones Surgical History: Denies all surgeries Family History Family History: Reviewed,noncontributory to illness Social History Smoker: Non-Smoker Alcohol: Denies ETOH Use Drugs: Denies Drug Use Lives In: Home Constitutional: denies: chills, diaphoresis, fatigue, fever, malaise, sweats, weakness, others EENTM: denies: blurred vision, double vision, ear bleeding, ear discharge, ear drainage, ear pain, ear ringing, eye pain, eye redness, hearing loss, mouth pain, mouth swelling, nasal discharge, nose bleeding, nose congestion, nose pain, photophobia, tearing, throat pain, throat swelling, voice changes, others Respiratory: denies: cough, hemoptysis, orthopnea, SOB at rest, shortness of breath, SOB with excertion, stridor, wheezing, others Cardiovascular: denies: chest pain, dizzy spells, diaphoresis, Dyspnea on exertion, edema, irregular heart beat, left arm pain, lightheadedness, palpitations, PND, syncope, others Gastrointestinal: reports: abdominal pain; denies: abdomen distended, blood streaked bowels, constipated, diarrhea, dysphagia, difficulty swallowing, hematemesis, melena, nausea, poor appetite, poor fluid intake, rectal bleeding, rectal pain, vomiting, others Genitourinary: reports: testicle pain; denies: burning, dysuria, flank pain, frequency, hematuria, incontinence, penile discharge, penile sore, pain, testicle swelling, urgency, others Neurological: denies: dizziness, fainting, headache, left sided numbness, left sided weakness, numbness, paresthesia, pre-existing deficit, right sided numbness, right sided weakness, seizure, speech problems, tingling, tremors, weakness, others Musculoskeletal: denies: back pain, gout, joint pain, joint swelling, muscle pain, muscle stiffness, neck pain, others Integumetry: denies: bruises, change in color, change in hair/nails, dryness, laceration, lesions, lumps, rash, wounds, others Allergic/Immunocompromised: denies: Difficulty Healing, Frequent Infections, Hives, Itching, others Hematologic/Lymphatic: denies: anemia, blood clots, easy bleeding, easy bruising, swollen glands, others Endocrine: denies: excessive hunger, excessive sweating, excessive thirst, excessive urination, flushing, intolerance to cold, intolerance to heat, unexplained weight gain, unexplained weight loss, others Psychiatric: denies: anxiety, bipolar disorder, depression, hopeless, panic disorder, schizophrenia, sleepless, suicidal, others All Other Systems: Reviewed and Negative Physical Exam General Appearance: Moderate Distress, Normal HEENT: Normal ENT Inspection, Pharynx Normal, TMs Normal Neck: Full Range of Motion, Non-Tender, Normal, Normal Inspection Respiratory: Chest Non-Tender, Lungs Clear, No Accessory Muscle Use, No Re spiratory Distress, Normal Breath Sounds Cardiovascular: No Edema, No JVD, No Murmur, No Gallop, Normal Peripheral Pulses, Regular Rate/Rhythm Breast Exam: Deferred Gastrointestinal: No Organomegaly, Non Tender, No Pulsatile Mass, Normal Bowel Sounds, Soft Genitalia: Deferred Pelvic: Deferred Rectal: Deferred Extremities: No calf tenderness, Normal capillary refill, Normal inspection, Normal range of motion, Non-tender, No pedal edema Musculoskeletal : Apperance: Normal Neurologic: Alert, nylon winder II-XII nml as Tested, No Motor Deficits, Normal Affect, Normal Mood, No Sensory Deficits Cerebellar Function: Normal Reflexes: Normal Skin: Dry, Normal Color, Warm Peripheral Pulses: 3+ Radial (R), 3+ Radial (L) Lymphatic: No Adenopathy Was a procedure done? Was a procedure done?: No Differential Dx Considerations may include: Inguinal strain X-Ray, Labs, Meds, VS Vital Signs Date Time Temp Pulse Resp B/P (MAP) Pulse Ox O2 Delivery O2 Flow Rate FiO2 11/24/24 07:33 97.9 62 18 146/86 (106) 99 97.9 Patient alert. Complaining of inguinal pain. Vitals stable. Answering questions. No sign of hernia. Abdomen is soft nontender. No abnormal findings of the abdomen on physical examination. Ultrasound of the testicle does not reveal any acute process. Was given prescription of Motrin. Explained to the patient. Was told to follow up with his primary care physician. Was told to come back if there is any problem. Time of 1ST Reevaluation: 08:17 Reevaluation 1ST: Improved Patient Education/Counseling: Diagnosis, Treatment, Need For Follow Up Family Education/Counseling: No Family Present SEPSIS Sepsis Screen Date sepsis recognized/suspect: Nov 24, 2024 Time Sepsis recognized/suspect: 729 Recent Procedure: No On Antibiotic Therapy: No Respiratory Rate >20: No Heart Rate >90: No Temp<36 C (96.8 F) or >38.3 C: No SBP <90 or MAP <65 mmHG: No New Acute Mental Status Change: No Is the patient on CPAP, BIPAP,: No Physician Orders Testicular Ultrasound (11/24/24 07:49) Vital Signs Date Time Temp Pulse Resp B/P (MAP) Pulse Ox O2 Delivery O2 Flow Rate FiO2 11/24/24 07:33 97.9 62 18 146/86 (106) 99 97.9 Departure 1 Departure Time of Disposition: 08:27 Impression: Primary Impression: Hydrocele Qualified Codes: N43.3 - Hydrocele, unspecified Additional Impression: Inguinal strain Qualified Codes: S76.219A - Strain of adductor muscle, fascia and tendon of unspecified thigh, initial encounter Disposition: 01 HOME / SELF CARE / HOMELESS Condition: Good e-Prescriptions Ibuprofen Micronized (MOTRIN TABLET) 600 Mg Tb 600 MG PO TID PRN for 5 Days, #15 TAB *Black box warning-NSAIDS can increase risk of SD & hypertension, GI irritation, ulceration, bleed, perferation. Do not use post cardiac surgery. Use short duration/lowest effective dose. Prov: MARIFER SILVESTRE MD 11/24/24 Discharged With: Self Critical Care Note Critical Care Time?: No Stability Stability form required: No Heart Score Heart Score: Heart Score Response (Comments) Value History N/A 0 EKG N/A 0 Age N/A 0 Risk Factors N/A 0 Troponin N/A 0 Total 0 I personally scribed for MARIFER SILVESTRE MD ([email or web address]) on 11/24/24 at 07:52. Electronically submitted by Isael Carlson ([email or web address]). MARIFER SILVESTRE MD Nov 24, 2024 07:52
[2024-11-24] MEDS ORDERED: IBU600T PO (08:27)
--- NOTE | 2024-11-24 09:18 | DVH ---
CLINICAL INFORMATION: Testicular torsion. TECHNIQUE: Grayscale sonographic imaging of the testicles and scrotal contents was performed , jordan joanne by color doppler technique. Duplex doppler ultrasound of both testicles was performed. COMPARISON: None FINDINGS: The right testicle measures 4.1 x 2.6 x 3.6 cm, within normal limits. Unremarkable echogenicity of th e right testicle. Arterial and venous blood flow demonstrated. Heterogeneous appearing epididymis w ith increased vascular flow. Small to moderate right hydrocele. Right varicocele visualized. There is a shadowing calcification adjacent to the right testicle measuring up to 0.5 x 0.3 x 0.5 cm The left testicle measures 4.2 x 2.2 x 3.1 cm, within normal limits. Unremarkable echogenicity of the left testicle. Arterial and venous blood flow demonstrated. Unremarkable epididymis. No hydrocele or varicocele. IMPRESSION: 1. Heterogeneous right epididymis with increased vascular flow, possible epididymitis in the appropri ate clinical setting. 2. Small to moderate right hydrocele 3. Right varicocele. No left varicocele seen. Unusual to have right sided varicocele only. Correlatio n with nonemergent CT of the abdomen and pelvis could be considered to exclude abdominal mass venous obstruction. 4. Nonspecific calcification adjacent to the right testicle.
[2024-11-24 10:28] VITALS: BP 135/76; TEMP 97.8
[2024-11-24] MEDS: HYDROcodone-ACET 5/325MG TAB PO ONE (10:31)
[2024-11-24 10:34] VITALS: PULSE 55; RESP 16; O2SAT 99
[2024-11-24 10:56] LABS: Urine Protein, UAD TRACE (Negative)
== END 2024-11-24 10:37 | disposition home or self-care (01) ==
LOC: ER 07:20
DX: S39.011A Strain of muscle, fascia and tendon of abdomen, initial encounter (principal); N43.3 Hydrocele, unspecified; I48.91 Unspecified atrial fibrillation; I10 Essential (primary) hypertension; Z79.899 Other long term (current) drug therapy; X58.XXXA Exposure to other specified factors, initial encounter; Y93.89 Activity, other specified; Y92.89 Other specified places as the place of occurrence of the external cause; Y99.0 Civilian activity done for income or pay
CPT/HCPCS: 76870; 81001